=== PATIENT | female | born 1950 | race Caucasian/White ===

== ENCOUNTER 2020-07-27 07:26 | Outpatient (REF) | payer MEDICARE, SELFPAY ==
[2020-07-27 11:12] LABS: Alanine Aminotransferase 22 U/L (0-31); Albumin Level 4.4 g/dL (3.5-5.0); Alkaline Phosphatase 71 U/L (39-117); Anion Gap 12 (12-20); Aspartate Amino Transferase 22 U/L (5-31); Bilirubin Total 0.6 mg/dL (0.0-1.0); Blood Urea Nitrogen 19 mg/dL (9-16); Calcium 9.7 mg/dL (8.4-10.2); Carbon Dioxide 29 mmol/L (22-29); Chloride 107 mmol/L (96-108); Cholesterol 154 mg/dL; Estimated Glomerular Filt Rate > 60; Glucose Fasting 103 mg/dL (60-99); HDL Cholesterol 45 mg/dL; LDL Cholesterol Calculated 91 mg/dl; Potassium 4.7 mmol/L (3.3-5.1); Sodium 143 mmol/L (135-145); Total Protein 6.8 g/dL (6.5-8.0); Triglycerides 91 mg/dL
[2020-07-27 11:34] LABS: TSH reflex Free T4 1.07 uIU/mL (0.32-4.0)
== END 2020-07-27 07:27 | disposition home or self-care (01) ==
LOC: HO.WFDLDS 07:26
PROVIDERS: Visit Provider Family Medicine
DX: Z00.00 Encounter for general adult medical examination without abnormal findings (principal); Z13.220 Encounter for screening for lipoid disorders; Z13.29 Encounter for screening for other suspected endocrine disorder
CPT/HCPCS: 36415; 80053; 80061; 84443

== ENCOUNTER 2020-11-06 09:19 | Outpatient (REF) | payer MEDICARE, SELFPAY ==
[2020-11-06 11:38] LABS: MANUAL DIFF FLAG NO
[2020-11-06 11:49] LABS: Basophils Absolute Auto 0.1 X10*3/uL (0.0-0.2); Basophils Percent Auto 1.3 % (0-2); Eosinophils Absolute Auto 0.1 X10*3/uL (0.0-0.4); Eosinophils Percent Auto 2.5 % (0-4); Hematocrit 40.6 % (37-47); Hemoglobin 13.3 g/dl (12.0-16.0); Imm Gran Abs Auto 0.01 X10*3/uL (0.00-0.03); Imm Gran Pct Auto 0.2 % (0.0-0.4); Lymphocytes Absolute Auto 1.2 X10*3/uL (1.2-4.9); Lymphocytes Percent Auto 25.3 % (20-40); Mean Corpuscular HGB Conc 32.8 g/dl (31.0-35.0); Mean Corpuscular Hemoglobin 31.6 pg (27.0-33.0); Mean Corpuscular Volume 96.4 fL (80-98); Mean Platelet Volume 10.1 fL (9.4-12.3); Monocytes Absolute Auto 0.4 X10*3/uL (0.1-1.2); Monocytes Percent Auto 8.4 % (2-11); Neutrophils Percent Auto 62.3 % (45-73); Platelet Count 255 X10*3/uL (160-400); Red Blood Count 4.21 X10*6/uL (4.20-5.50); White Blood Count 4.8 X10*3/uL (4.8-10.8)
[2020-11-06 11:53] LABS: Estimated Average Glucose 117 mg/dL; Hemoglobin A1c % 5.7 %
[2020-11-06 12:28] LABS: Alanine Aminotransferase 27 U/L (0-31); Albumin Level 4.5 g/dL (3.5-5.0); Alkaline Phosphatase 63 U/L (39-117); Anion Gap 12 (12-20); Aspartate Amino Transferase 27 U/L (5-31); Bilirubin Total 0.7 mg/dL (0.0-1.0); Blood Urea Nitrogen 16 mg/dL (9-16); Calcium 9.7 mg/dL (8.4-10.2); Carbon Dioxide 28 mmol/L (22-29); Chloride 106 mmol/L (96-108); Estimated Glomerular Filt Rate > 60; Glucose Fasting 95 mg/dL (60-99); Potassium 4.6 mmol/L (3.3-5.1); Sodium 141 mmol/L (135-145); TSH reflex Free T4 0.97 uIU/mL (0.32-4.0); Total Protein 7.1 g/dL (6.5-8.0)
== END 2020-11-06 09:20 | disposition home or self-care (01) ==
LOC: HO.WFDLDS 09:19
PROVIDERS: Visit Provider Family Medicine
DX: Z00.00 Encounter for general adult medical examination without abnormal findings (principal); R73.01 Impaired fasting glucose
CPT/HCPCS: 36415; 80053; 83036; 84443; 85025

== ENCOUNTER 2020-12-04 14:52 | Outpatient (REF) | payer MEDICARE, SELFPAY ==
--- NOTE | ~2020-12-04 | MM_ITS ---
EXAMINATION: BONE DENSITOMETRY CLINICAL INDICATION: Encounter for screening for osteoporosis. COMPARISON: Baseline BD dated 10/30/2007. TECHNIQUE: Using a [employer] DXA System (software version: 13.1) manufactured by [employer], dual-energy x-ray absorptiometry was performed of the lumbar spine and left hip. The images are of good technical quality. Summary results are attached. FINDINGS: AP SPINE L2-L4 (excluding L1): The data of L1-L4 has been changed to exclude the L1 vertebral body, because degenerative changes at this level may cause overestimation of lumbar spine density. Current: BMD 0.926 g/cm2, Z-score -0.8, T-score -2.3, osteopenia, 7.5% decrease from baseline (<5% change is not significant). Baseline: BMD 1.001 g/cm2. LEFT FEMUR, NECK: Current: BMD 0.656 g/cm2, Z-score -1.2, T-score -2.7, osteoporosis. Baseline: BMD 0.650 g/cm2. LEFT FEMUR, TOTAL: Current: BMD 0.758 g/cm2, Z-score -0.7, T-score -2.0, osteopenia, 3.6% decrease from baseline (<5% change is not significant). Baseline: BMD 0.786 g/cm2. IDENTIFIED RISK FACTORS: Menopause, secondary osteoporosis. HISTORY OF FRACTURE: None listed. MEDICATIONS: Calcium supplements or multivitamin, vitamin D. MM/XR DEXA appendicular skeleton IMPRESSION: 1. DIAGNOSIS: Osteoporosis based on the lowest T-score value of -2.7 in the femoral neck applying World Health Organization criteria. 2. 10-YEAR FRACTURE RISK PREDICTION, FRAX: According to the guidelines, FRAX calculation should only be performed on patients in the osteopenia bone density category. Therefore, FRAX was not performed on this patient. 3. Treatment Recommendations: NOF guidelines recommend consideration for treatment in postmenopausal women and men age 50 and older presenting with the following: -A hip or vertebral (clinical or morphometric) fracture. -T-score less than or equal to -2.5 at the femoral neck or spine after appropriate evaluation to exclude secondary causes. -Low bone mass at the hip or spine and a 10-year fracture probability by FRAX of greater than or equal to 3% for hip fracture or greater than or equal to 20% for major osteoporotic fracture based on the [place] adapted WHO algorithm. 4. Other Recommendations: All treatment decisions require clinical judgment and consideration of individual patient factors, including patient preferences, comorbidities, previous drug use, risk factors not captured in the FRAX model (e.g. frailty, falls, vitamin D deficiency, increased bone turnover, interval significant decline in bone density) and possible under or overestimation of fracture risk by FRAX. Additional medical evaluation for secondary cause of low bone mineral density may be appropriate. FUTURE SCAN RECOMMENDATION: People with diagnosed cases of osteoporosis or at high risk for fracture should have regular bone mineral density tests. For patients eligible for Medicare, routine testing is allowed once every 2 years. The testing frequency can be increased to one year for patients who have rapidly progressing disease, those who are receiving or discontinuing medical therapy to restore bone mass, or have additional risk factors.
== END 2020-12-04 14:53 | disposition home or self-care (01) ==
LOC: HO.MAMMO 14:52
PROVIDERS: PCP Family Medicine; Visit Provider Family Medicine
DX: Z13.820 Encounter for screening for osteoporosis (principal); Z78.0 Asymptomatic menopausal state
CPT/HCPCS: 77081

== ENCOUNTER 2021-05-31 07:42 | Outpatient (REF) | payer MEDICARE, SELFPAY ==
[2021-05-31 11:25] LABS: MANUAL DIFF FLAG NO
[2021-05-31 11:51] LABS: Basophils Percent Auto 0.8 % (0-2); Eosinophils Absolute Auto 0.1 X10*3/uL (0.0-0.4); Eosinophils Percent Auto 2.9 % (0-4); Hematocrit 38.5 % (37.0-47.0); Hemoglobin 12.5 g/dl (12.0-16.0); Imm Gran Abs Auto 0.01 X10*3/uL (0.00-0.03); Imm Gran Pct Auto 0.2 % (0.0-0.4); Lymphocytes Absolute Auto 1.7 X10*3/uL (1.2-4.9); Lymphocytes Percent Auto 34.4 % (20-40); Mean Corpuscular HGB Conc 32.5 g/dl (31.0-35.0); Mean Corpuscular Hemoglobin 31.8 pg (27.0-33.0); Mean Platelet Volume 10.6 fL (9.4-12.3); Monocytes Absolute Auto 0.4 X10*3/uL (0.1-1.2); Monocytes Percent Auto 7.7 % (2-11); Neutrophils Absolute Auto 2.6 x10*3/uL (2.0-8.3); Platelet Count 225 X10*3/uL (160-400); Red Blood Count 3.93 X10*6/uL (4.20-5.50); White Blood Count 4.8 X10*3/uL (4.8-10.8)
[2021-05-31 12:19] LABS: Alanine Aminotransferase 19 U/L (0-31); Albumin Level 4.2 g/dL (3.5-5.0); Alkaline Phosphatase 59 U/L (39-117); Anion Gap 13 (12-20); Aspartate Amino Transferase 22 U/L (5-31); Bilirubin Total 0.5 mg/dL (0.0-1.0); Blood Urea Nitrogen 18 mg/dL (9-16); Calcium 9.4 mg/dL (8.4-10.2); Carbon Dioxide 27 mmol/L (22-29); Chloride 108 mmol/L (96-108); Cholesterol 159 mg/dL; Estimated Glomerular Filt Rate > 60; Glucose Fasting 90 mg/dL (60-99); HDL Cholesterol 44 mg/dL; LDL Cholesterol Calculated 97 mg/dl; Potassium 4.5 mmol/L (3.3-5.1); Sodium 143 mmol/L (135-145); Total Protein 6.8 g/dL (6.5-8.0); Triglycerides 92 mg/dL
[2021-05-31 12:25] LABS: TSH reflex Free T4 0.78 uIU/mL (0.32-4.0)
== END 2021-05-31 07:43 | disposition home or self-care (01) ==
LOC: HO.WFDLDS 07:42
PROVIDERS: Visit Provider Family Medicine
DX: Z00.00 Encounter for general adult medical examination without abnormal findings (principal)
CPT/HCPCS: 36415; 80053; 80061; 84443; 85025

== ENCOUNTER 2022-02-18 09:14 | Outpatient (REF) | payer MEDICARE, SELFPAY ==
[2022-02-18 14:32] LABS: Influenza A PCR NEGATIVE (Negative); Influenza B PCR NEGATIVE (Negative); Resp Syncy Virus RNA Qual PCR POSITIVE (Negative); SARS COV2 PCR INHOUSE NEGATIVE (Negative)
== END 2022-02-18 09:15 | disposition home or self-care (01) ==
LOC: HO.LAB 09:14
PROVIDERS: Visit Provider Family Medicine
DX: Z20.822 Contact with and (suspected) exposure to COVID-19 (principal); R09.89 Other specified symptoms and signs involving the circulatory and respiratory systems
CPT/HCPCS: 0241U

== ENCOUNTER 2022-08-30 07:30 | Outpatient (REF) | payer MEDICARE, SELFPAY ==
[2022-08-30 11:42] LABS: Estimated Average Glucose 114 mg/dL; Hemoglobin A1c % 5.6 %
[2022-08-30 11:51] LABS: Alanine Aminotransferase 22 U/L (0-31); Albumin Level 4.3 g/dL (3.5-5.0); Alkaline Phosphatase 43 U/L (39-117); Anion Gap 13 (12-20); Appearance Urine Clear; Aspartate Amino Transferase 25 U/L (5-31); Bilirubin Total 0.6 mg/dL (0.0-1.0); Blood Urea Nitrogen 25 mg/dL (9-16); Calcium 9.8 mg/dL (8.4-10.2); Carbon Dioxide 25 mmol/L (22-29); Chloride 108 mmol/L (96-108); Cholesterol 166 mg/dL; Color Urine Yellow; Estimated Glomerular Filt Rate > 60; Glucose Fasting 98 mg/dL (60-99); Glucose Urine UA Negative (Negative); HDL Cholesterol 47 mg/dL; LDL Cholesterol Calculated 101 mg/dl; Leukocyte Esterase Urine Trace (Negative); Nitrite Urine Negative (Negative); PH 5.5 (5.0-9.0); Potassium 4.8 mmol/L (3.3-5.1); Sodium 141 mmol/L (135-145); Specific Gravity - Urine 1.015 (1.005-1.025); Total Protein 6.8 g/dL (6.5-8.0); Triglycerides 91 mg/dL; UMIC TRIGGER UA YES; Urine Blood Negative (Negative); Urine Ketones Negative (Negative); Urine Protein Negative (Neg-Trace)
[2022-08-30 11:54] LABS: Bacteria Urine None Seen (None Seen); RBC Urine 0-2 /HPF (0-2); Squamous Epithelial Cell Urine 0-2 /HPF (0-2); WBC Urine 0-5 /HPF (0-5)
[2022-08-30 11:57] LABS: Vitamin D 25-OH Total 56.3 ng/mL (>30)
[2022-08-30 12:14] LABS: Creatinine Urine 95.96 mg/dL; Microalbum/Creatinine Ratio Ur 21.8 ug/mg cr
== END 2022-08-30 07:31 | disposition home or self-care (01) ==
LOC: HO.WFDLDS 07:30
PROVIDERS: Visit Provider Family Medicine
DX: Z00.00 Encounter for general adult medical examination without abnormal findings (principal); I10 Essential (primary) hypertension; E55.9 Vitamin D deficiency, unspecified; R73.01 Impaired fasting glucose
CPT/HCPCS: 36415; 80053; 80061; 81001; 82043; 82306; 83036; 84443

== ENCOUNTER 2022-12-15 14:42 | Outpatient (REF) | payer MEDICARE, SELFPAY | END 2022-12-15 14:43 | disposition home or self-care (01) | LOC: HO.MAMMO 14:42 | PROVIDERS: PCP Family Medicine; Visit Provider Family Medicine | DX: Z13.820 Encounter for screening for osteoporosis (principal); M81.0 Age-related osteoporosis without current pathological fracture; Z78.0 Asymptomatic menopausal state | CPT/HCPCS: 77080 ==

== ENCOUNTER 2023-05-10 11:36 | Outpatient (AMB) | payer MEDICARE, SELFPAY ==
--- NOTE | 2023-05-10 11:44 | A.OFFPC_ITS ---
Vital Signs 05/10/23 11:47 Height 5 ft 4 in Weight 159 lb 8 oz BMI 27.4 BP 110/64 Blood Pressure Location Lt brachial Position Sitting Pulse 87 Pulse Source Pulse Oximeter Pulse Oximetry (%) 93 Oxygen Delivery Method Room Air Intake Visit Reasons: f/u hypertension and chronic conditions Intake Note: Patient is here to follow up on HTN, Chronic Conditions. Mold Mover Required: No Wheel Polisher: Not Required per policy Accompanied by: Self / Same As Patient Allergies No Known Allergies Allergy (Verified 05/10/23 11:47) Tobacco use date assessed: 05/10/23 Fall risk assessment: No Falls in past year Last assessed Fall Risk: 05/10/23 Dental Screening Dental Screen Date: 05/10/23 Did you have a dental visit in the last 12 months?: Yes Did you have a dental problem in the last 6 months where you did not have access to dental care?: No Was dental information given to patient?: Patient has dentist HPI f/u hypertension and chronic conditions HPI Details 72 y/o female presents to f/u hypertensi on and chronic conditions. Also hx of pre-diabetes. A1c today 05/10/23 is Blood pressure today 110/64. Hx of osteoporosis. She has been taking calcium and vitamin D. 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 glasses) Questionnaire PHQ-9 Over the last 2 weeks, how often have you been bothered by any of the following problems? 1. Little interest or pleasure in doing things: not at all 2. Feeling down, depressed, or hopeless: not at all 3. Trouble falling or staying asleep, or sleeping too much: not at all 4. Feeling tired or having little energy: not at all 5. Poor appetite or overeating: not at all 6. Feeling bad about yourself - or that you are a failure or have let yourself or your family down: not at all 7. Trouble concentrating on things, such as reading the newspaper or watching television: not at all 8. Moving or speaking so slowly that other people could have noticed. Or the opposite - being so fidgety or restless that you have been moving around a lot more than usual: not at all 9. Thoughts that you would be better off or of hurting yourself in some way: not at all Total score: 0 Depression Screening Interpretation: Negative Depression Screening Done: Yes Source: Developed by Drs. Anuel Bejarano, Vicky Adame, Arturo Cleaning and colleagues, with an educational dylan from [employer]. Thrive Questionnaire Date Thrive assessed: 05/10/23 I am a: Patient Within the past 12 months, did the food you bought not last and you didn't have the money to get more?: Never true Within the past 12 months, did you worry whether your food would run out before you got money to buy more?: Never true Do you have trouble paying for medicines?: No Do you have trouble getting transportation to medical appointments?: No Do you have trouble paying your heating and electricity bill?: No Do you have trouble taking care of your child, family member or friend?: No Do you have trouble with day-to-day activities such as bathing, preparing meals, shopping, managing finances, etc.?: No Are you currently unemployed and looking for a job?: No Are you interested in more education?: No Currently or been in a relationship where the following occur: no concerns reported THRIVE Score: 0 AUDIT C Alcohol Use Questionnaire (AUDIT-C) 1. How often do you have a drink containing alcohol?: 2-4 times a month 2. How many drinks containing alcohol do you have on a typical day when you are drinking?: 1 or 2 Total Score: 2 PER-7 AMB Questionnaire PER-7 Date PER - 7 assessed: 05/10/23 Feeling nervous, anxious, or on edge: 0 = Not at all Not being able to stop or control worryin = Not at all Worrying too much about different things: 0 = Not at all Trouble relaxin = Not at all Being so restless that it is hard to sit still: 0 = Not at all Becoming easily annoyed or irritable: 0 = Not at all Feeling afraid as if something awful might happen: 0 = Not at all Total PER-7 score (0-4 normal; 5-9 mild; 10-14 moderate; 15-21 severe): 0 Source: Developed by Drs. Anuel Bejarano, Vicky Adame, Arturo Cleaning and colleagues, with an educational dylan from [employer]. Physical exam (Primary Care) Vital Signs: Last Vital Signs Pulse 87 05/10/23 11:47 BP 110/64 05/10/23 11:47 Pulse Ox 93 05/10/23 11:47 Oxygen Delivery Method Room Air 05/10/23 11:47 BMI result Body Mass Index 27.4 Tobacco/Smoking Status: Tobacco use Status Tobacco use date assessed 05/10/23 05/10/23 11:55 Patient Tobacco Use Status Never used Tobacco 05/10/23 11:46 e-Cigarette/Vaping Use Never Used 05/10/23 11:46 PHQ-9: PHQ-9 Score PHQ-9: Total score 0 05/10/23 11:46 Depression Screening Interpretation: Negative Thrive Assessment: Date of Thrive Assessment Date Thrive assessed 05/10/23 05/10/23 11:46 Currently or been in a relationship where the following occur: no concerns reported Results AMB Hemoglobin A1c AMB Hemoglobin A1c 6.5 % Last Edit by Yvonne Hayes CMA on 05/10/23 12:55 Assessment and Plan Assessment & Plan (1) Essential hypertension: Code(s): I10 - Essential (primary) hypertension Plan: Blood?pressure?shows?good?control.??Goal?is?less?than?140/90 Continue?current?medication (2) Osteoporosis: Code(s): M81.0 - Age-related osteoporosis without current pathological fracture Plan: Ongoing?osteoporosis?and?bone?density?worsened?since?2020 She?has?already?been?started?on?alendronate. Continue?alendronate?and?we?will?follow-up?again?in?3?year Encouraged?good?sources?of?calcium?and?ecfshrg-[id number]-abq?has?a?supplement, and?weight-bearing?exercise?which?she?will?start (3) Diabetes mellitus: Code(s): E11.9 - Type 2 diabetes mellitus without complications Plan: A1c?6.5?now?shows?early?diabetes. Start?metformin 250?mg?daily Work?on?diet?lower?in?sugars?and?starches Refer?to?nurse?navigator?for?diabetic?teaching She?will?contact?her?eye?doctor?regarding?a?diabetic?eye?exam?and?I?recommended? this?annually. Orders: Orders AMB Hemoglobin A1c Today Z13.9 - Encounter for screening, unspecified Referrals Nurse Navigator Referral E11.9 - Type 2 diabetes mellitus without complications Medications: New metformin 250 mg (1/2 x 500 mg) PO DAILY 15 tabs 4RF 30 days Coding Level of Care Code Tele Est Pt Level 4 (55409) Diagnoses Essential hypertension I10 Osteoporosis M81.0 Diabetes mellitus E11.9
[2023-05-10 11:47] VITALS: BP 110/64; PULSE 87; O2SAT 93; BMI 27.4
== END 2023-05-10 13:06 | disposition home or self-care (01) ==
PROVIDERS: PCP Family Medicine; Visit Provider Family Medicine
DX: I10 Essential (primary) hypertension (principal); M81.0 Age-related osteoporosis without current pathological fracture; E11.9 Type 2 diabetes mellitus without complications
CPT/HCPCS: 83036; 99214

== ENCOUNTER 2023-09-15 10:49 | Outpatient (AMB) | payer MEDICARE, SELFPAY ==
[2023-09-15 11:10] VITALS: BP 120/72; PULSE 78; O2SAT 98; BMI 26.8
--- NOTE | 2023-09-15 11:10 | A.OFFPC_ITS ---
Vital Signs 09/15/23 11:10 Height 5 ft 4 in Weight 156 lb 3 oz BMI 26.8 BP 120/72 Blood Pressure Location Lt brachial Position Sitting Pulse 78 Pulse Source Pulse Oximeter Pulse Oximetry (%) 98 Oxygen Delivery Method Room Air Intake Visit Reasons: f/u hypertension and chronic conditions Intake Note: Patient is here for follow up on hypertension and diabetes. Allergies No Known Allergies Allergy (Verified 09/15/23 11:12) Medication List - Last Reconciled 09/15/23 by Adrien Fernández MD alendronate 70 mg PO QWEEK 84 days Ca-D3-mag pz-hghz-yjh-asaf-bor 600 mg calcium- 20 mcg-50 mg (Calcium 600-D3 Plus (mag-zinc)) tabs PO chlordiazepoxide-clidinium 5-2.5 mg 1 cap PO BID lisinopril 10 mg PO DAILY 90 days mesalamine ER 1.5 grams PO DAILY metformin 250 mg (1/2 x 500 mg) PO DAILY 30 days multivitamin 1 tab PO DAILY omeprazole 20 mg PO DAILY simvastatin 20 mg PO BEDTIME 90 days Tobacco use date assessed: 09/15/23 Fall risk assessment: No Falls in past year Last assessed Fall Risk: 09/15/23 Dental Screening Dental Screen Date: 05/10/23 HPI f/u hypertension and chronic conditions HPI Details Patient?presents?to?follow- up?hypertension?and?new?diagnosis?of?diabetes. Blood?pressure?is?120/72?and?she?is?taking?lisinopril?without?problems Had?started?her?on?1/2?tab?metformin?and?referred?her?to?the?nurse?navigator?for ?diabetic?teaching A1c?decreased?from?6.5%?to?5.8%.??No?problems?with?metformin.??Wor prem?on?diabetic?diet?and?getting?more?exercise. 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 glasses) Questionnaire Thrive Questionnaire Date Thrive assessed: 05/10/23 PER-7 AMB Questionnaire PER-7 Date PER - 7 assessed: 05/10/23 Source: Developed by Drs. Anuel Bejarano, Vicky Adame, Arturo Cleaning and colleagues, with an educational dylan from [employer]. Review of Systems Const Denies chills, Denies fatigue, Denies fever(s), Denies headache(s) and Denies weakness ENT Denies dizziness and Denies headache(s) Card Denies chest pain, Denies lightheadedness, Denies dyspnea and Denies other (Palpitations) Resp Denies cough, Denies dyspnea, Denies wheezing and Denies other ( shortness of breath) Musc Denies numbness and Denies tingling Neuro Denies dizziness, Denies headache(s), Denies numbness, Denies tingling, Denies paresthesias and Denies weakness Psych Denies anxiety and Denies depression Endo Denies fatigue, Denies polydipsia and Denies polyuria Aller/Immun Denies wheezing Physical exam (Primary Care) Vital Signs: Last Vital Signs Pulse 78 09/15/23 11:10 BP 120/72 09/15/23 11:10 Pulse Ox 98 09/15/23 11:10 Oxygen Delivery Method Room Air 09/15/23 11:10 BMI result Body Mass Index 26.8 Tobacco/Smoking Status: Tobacco use Status Tobacco use date assessed 09/15/23 09/15/23 11:13 Patient Tobacco Use Status Never used Tobacco 09/15/23 11:11 e-Cigarette/Vaping Use Never Used 09/15/23 11:11 Thrive Assessment: Date of Thrive Assessment Date Thrive assessed 05/10/23 09/15/23 11:11 Const General: no acute distress and well developed Nutritional Appearance: well nourished Orientation/consciousness: patient oriented x3 [facility] Head: Yes normocephalic and Yes atraumatic Eyes General: appearance normal, both eyes and all related structures Pupils: Equal, round and reactive pupils present EOM: EOMs intact bilaterally Resp Effort & Inspection: normal respiratory effort Auscultation: clear to auscultation bilaterally Cardio Rate: regular rate Rhythm: regular rhythm Heart sounds: S1 normal heart sound present, S2 normal heart sound present, no gallops, no murmurs and no rubs Neuro General: patient oriented x3 and gait normal Cranial nerves: Yes Equal, round and reactive pupils present Psych Affect: normal affect Assessment and Plan Assessment & Plan (1) Essential hypertension: Code(s): I10 - Essential (primary) hypertension Plan: Blood?pressure?is?controlled.??Goal?is Less?than?140/90 Continue?current?medication (2) Diabetes: Code(s): E11.9 - Type 2 diabetes mellitus without complications Plan: New?diagnosis?of?early?diabetes?at?last?visit. Has?now?had?appointments?with?nurse?navigator?for?diabetic?teaching Tolerating?metformin?250?mg?daily A1c?improved?from?6.5%?to?5.8%?and?goal?is?less?than?7.0%?an d?ideally?less?than?6.5%. We?discussed?that?if?she?is?able?to?continue?bring?her?A1c?down?to?about?5.4%?we ?can?trial?off?of?metformin?and?consider?managing?as?diet-controlled?diabetes. She?will?continue?lifestyle?changes?and?for?now?she?will?continue?metformin. Orders: Orders AMB Hemoglobin A1c Today Z13.9 - Encounter for screening, unspecified Coding Level of Care Code Est Pt Level 3 (91236) Diagnoses Essential hypertension I10 Diabetes E11.9
== END 2023-09-15 11:38 | disposition home or self-care (01) ==
PROVIDERS: PCP Family Medicine; Visit Provider Family Medicine
DX: I10 Essential (primary) hypertension (principal); E11.9 Type 2 diabetes mellitus without complications
CPT/HCPCS: 99213

== ENCOUNTER 2023-10-27 06:14 | Day surgery (SDC) | payer MEDICARE, SELFPAY ==
[2023-10-25 13:43] VITALS: BMI 27.2
[2023-10-27 06:33] VITALS: BMI 26.2
[2023-10-27] MEDS: Lactated Ringers 1,000 ML 50 ML IVCONT (06:46)
[2023-10-27 06:57] VITALS: BP 118/67; PULSE 92; RESP 18; TEMP 36.7; O2SAT 96
[2023-10-27 06:59] LABS: Glucose, Whole Blood 92 mg/dL (60-115)
--- NOTE | 2023-10-27 07:36 | P.HPSUR_ITS ---
Pre-Procedural Eval Section A - 24 Hr Update-Section A only Date of Service: 10/27/23 Section B - Complete if H&P > 30 days Chief Complaint: Crohn's disease of both small and large intestine Details of Present Illness: see H&P no changes Relevant Family History (Specify if Yes): No Relevant Social History: None Present Medications: see Short Stay Collaborative assessment Medical History: No relevant PMH History of Previous Operations: No relevant previous surgery Allergies: Allergies Allergy/AdvReac Type Severity Reaction Status Date / Time No Known Allergies Allergy Verified 10/27/23 06:42 Review of Systems Sugical H&P ROS: Negative: Constitution, Cardiovascular, Respiratory, Neurological, Psychiatric, Hem-Onc, Allergic/Immunologic, Gastrointestinal, Genitourinary, Musculoskeletal, Integumentary, Endocrine and Eyes/Ears/No se/Throat Exam Surgical H&P Exam: Normal: HEENT, Normal: Heart, Normal: Lungs, Normal: Extremities, Normal: Abdomen, Normal: Skin and Normal: Neurological Plan Diagnosis/Plan: Unchanged I have reviewed the history and physical and performed a pertinent physical examination on my patient. No changes have occurred unless specified. Time Spent With Patient Time: Total time managing care of this patient today ____ minutes.
[2023-10-27 08:05] VITALS: BP 85/40; PULSE 98; RESP 16; TEMP 36.1; O2SAT 97
--- NOTE | 2023-10-27 08:10 | HO.ANESPROP2 ---
HPI - Anesthesia Eval Consult details Narrative: colon screen PMFSH Active Problems Active Problems: All Active Problems Diabetes (Acute) Essential hypertension (Acute) Crohn's disease (Acute) Osteoporosis (Acute) Adult general medical exam (Acute) Pre-diabetes (Acute) Screening for colon cancer (Acute) Breast cancer screening by mammogram (Acute) Elevated fasting blood sugar (Acute) Right shoulder pain (Acute) Laboratory examination ordered as part of a routine general medical examination (Acute) Sinus infection (Acute) Past Medical History Medical History IBS (irritable bowel syndrome) GERD (gastroesophageal reflux disease) Osteoporosis Crohn's disease Diabetes HTN (hypertension) History of appendicitis Family History Family History Family/Other Diabetes Family history of problems with anesthesia: No Surgical History Surgical History H/O colonoscopy History of intestinal surgery History of Problems with Anesthesia: No Social History Social History Household Members: Spouse Housing: House Alcohol intake: current Alcohol intake frequency: holidays/special occasions only Alcohol type: beer Patient Tobacco Use Status: Never used Tobacco e-Cigarette/Vaping Use: Never Used Second Hand Smoke Exposure: No Are you DNR?: No Advance Directives: No Advance Directives Information Provided: Yes Nutrition Risks: No Nutritional Risk service: No Current occupational status: employed 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 glasses) Meds Allergies Allergy/AdvReac Type Severity Reaction Status Date / Time No Known Allergies Allergy Verified 10/27/23 06:42 Active Medications: Current Medications Lactated Ringer's (Lr) 1,000 mls @ 50 mls/hr IVCONT .Q20H NAOMIE Last Admin: 10/27/23 06:46 Dose: 50 mls/hr Home Medications ?Medication ?Instructions ?Recorded ?Confirmed ?Last Taken ?Type Ca 600 mg-D3 20 mcg-mag oxide 50 1 tab PO DAILY 07/02/20 10/25/23 Unknown History mc-Hm-gjaiyh-manganese-boron tablet (Calcium 600-D3 Plus (mag-zinc)) chlordiazepoxide-clidinium 5 1 cap PO BID 07/02/20 10/25/23 Unknown History mg-2.5 mg capsule mesalamine 0.375 gram 1.5 g PO DAILY 07/02/20 10/25/23 Unknown History capsule,extended release 24 hr multivitamin 1 tab PO DAILY 07/02/20 10/25/23 Unknown History omeprazole 20 mg capsule,delayed 20 mg PO DAILY 08/27/20 10/25/23 Unknown History release Exam Height,Weight and Vital Signs: Height 5 ft 3.25 in Weight 67.585 kg Last Vital Signs Temp 97 F 10/27/23 08:05 Pulse 98 10/27/23 08:05 Resp 16 10/27/23 08:05 BP 85/40 L 10/27/23 08:05 Pulse Ox 97 10/27/23 08:05 O2 Del Method Room Air 10/27/23 08:05 Pertinent Lab Results Pertinent Lab Results: Laboratory Tests 10/27/23 06:54 POC Glucose 92 Airway Mallampati Class: II TM Dist: >3cm Neck ROM: Full Heart: rrr Lungs: cta Assessment and Plan Assessment Anesthesia Assessment: Anesthesia Plan Discussed Final Anesthetic Review Family History of Problems with Anesthesia: No History of Problems with Anesthesia: No NPO: Yes ASA Class: III Final Preanesthetic Review: No Changes in Pt Med Stat, Meds/Allgs Chart Reviewed, Consent Obtained/Reviewed and Anes Risks/Benef Reviewed Patient Risk: Intermediate Procedure Risk: Low Anesthetic Plan Anesthetic Plan: MAC: Disposition: Standard PACU
[2023-10-27 08:20] VITALS: BP 103/61; PULSE 101; RESP 20; TEMP 36.5; O2SAT 96
--- NOTE | 2023-10-27 08:39 | OP_ITS ---
DATE OF SERVICE: 10/27/2023 SURGEON: Terrence Morgan MD INDICATIONS: Crohn disease involving the small and large intestine. PREOPERATIVE DIAGNOSIS: POSTOPERATIVE DIAGNOSIS: PROCEDURE PERFORMED: Colonoscopy to the neoterminal ileum with biopsy. ESTIMATED BLOOD LOSS: COMPLICATIONS: ANESTHESIA: Monitored anesthesia care. ASSISTANTS: SPECIMENS: DESCRIPTION OF PROCEDURE: A history and physical were performed. The risks and benefits of the procedure were explained to the patient, and informed consent was obtained. The patient was placed in the left lateral decubitus position. A digital rectal exam was performed and was found to be normal. The Olympus pediatric video colonoscope was introduced into the rectum and advanced to the cecum. The cecum was identified by transillumination, palpation, and identification of ileocecal valve, examination was performed and the scope was removed. She tolerated the procedure well and was returned to recovery area in stable condition. FINDINGS: The neoterminal ileum was normal. There was an anastomosis, which was widely patent at about 60 cm. The colonic mucosa showed scarring consistent with her prior history of Crohn disease. There was no active Crohn disease identified. Biopsies were obtained from the neoterminal ileum and from the remaining colon throughout. Retroflexed examination was normal. No polyps were identified. There were a few diverticula seen. IMPRESSION: Crohn disease; small and large intestine. RECOMMENDATION: Follow up the biopsy results. MD AYAKA Voss/DANISH / [id number]
== END 2023-10-27 08:35 | disposition home or self-care (01) ==
PROVIDERS: PCP Family Medicine; Visit Provider Internal Medicine Gastroenterology
PROC: 0DJD8ZZ Inspection of Lower Intestinal Tract, Via Natural or Artificial Opening Endoscopic (ICD-10-PCS; CPT 45378; principal; 2023-10-27 07:30)
DX: K50.818 Crohn's disease of both small and large intestine with other complication (principal); K57.30 Diverticulosis of large intestine without perforation or abscess without bleeding; Z98.0 Intestinal bypass and anastomosis status; Z90.49 Acquired absence of other specified parts of digestive tract; K21.9 Gastro-esophageal reflux disease without esophagitis; I10 Essential (primary) hypertension; M81.0 Age-related osteoporosis without current pathological fracture; Z79.899 Other long term (current) drug therapy
CPT/HCPCS: 45380; 82947; 88305; J2704

== ENCOUNTER 2023-12-13 15:39 | Outpatient (REF) | payer MEDICARE, SELFPAY ==
--- NOTE | ~2023-12-13 | MM_ITS ---
EXAMINATION: MM SCREENING DIGITAL BREAST TOMOSYNTHESIS, BILATERAL CLINICAL INFORMATION: Screening. Asymptomatic. COMPARISON: Mammography: Comparison is made with available priors TECHNIQUE: Digital breast mammography with tomosynthesis is performed in both the craniocaudal and mediolateral oblique views along with computer-aided detection (CAD). FINDINGS: There are scattered areas of fibroglandular density (ACR BI-RADS breast composition Category b). There are no significant masses, abnormal calcifications, or other abnormalities. MM/MM tomosynthesis screening BI IMPRESSION: No mammographic evidence of malignancy. ASSESSMENT: BI-RADS BI-RADS 1 - Negative RECOMMENDATION: Routine annual mammography screening. 1 year F/U This examination should not preclude the clinical evaluation of a suspicious palpable abnormality. This patient's information was entered into a reminder system with a target due date for their next mammogram. Electronically signed by: Eugenie Isbell DO 12/25/2023 05:15 PM EDT
== END 2023-12-13 15:40 | disposition home or self-care (01) ==
LOC: HO.MAMMO 15:39
PROVIDERS: PCP Family Medicine; Visit Provider Family Medicine
DX: Z12.31 Encounter for screening mammogram for malignant neoplasm of breast (principal)
CPT/HCPCS: 77063; 77067

== ENCOUNTER → 2023-12-13 16:00 | Outpatient (BNV) | payer MEDICARE, SELFPAY | PROVIDERS: PCP Family Medicine; Visit Provider Internal Medicine | DX: Z12.31 Encounter for screening mammogram for malignant neoplasm of breast (principal) | CPT/HCPCS: 77063; 77067 ==

== ENCOUNTER 2024-03-22 15:42 | Outpatient (AMB) | payer MEDICARE, SELFPAY ==
--- NOTE | 2024-03-22 15:53 | MHC.PC.OV ---
Vital Signs 03/22/24 16:03 Height 5 ft 2.5 in Weight 162 lb 8 oz BMI 29.2 BP 120/70 Blood Pressure Location Lt brachial Position Sitting Respiration 14 Pulse 84 Pulse Source Pulse Oximeter Pulse Oximetry (%) 95 Oxygen Delivery Method Room Air Intake Visit Reasons: Annual PE - see comments Intake Note: annual PE Is last menstrual period known: No Post menopausal: Yes Patient : No Allergies No Known Allergies Allergy (Verified 03/22/24 15:54) Tobacco use date assessed: 03/22/24 Fall risk assessment: No Falls in past year Last assessed Fall Risk: 03/22/24 Dental Screening Dental Screen Date: 03/22/24 Did you have a dental visit in the last 12 months?: Yes Did you have a dental problem in the last 6 months where you did not have access to dental care?: No Was dental information given to patient?: Patient has dentist HPI Annual PE - see comments HPI Details 73 y/o female presents for a CPE with f/u labs and health maintenance. No recent labs to review. She notes she had a colonoscopy in October of last year. She states she has a colonoscopy every 3 years. She is on alendronate for osteoporosis. A1c today 03/22/24 is 5.8%. She is on metformin 250mg daily. Blood pressure today 120/70, 84p. She is on lisinopril 10mg daily. HPI Comments History of Present Illness Details Documentation assistance for Adrien Fernández MD, was provided by Kloe Sierra,? Siding Mechanic on 03/22/2024 at 4:09 PM EST. I, Dr. Fernández, have read, observed, and verified documentation. ?? PFSH Medical History IBS (irritable bowel syndrome) GERD (gastroesophageal reflux disease) Osteoporosis Crohn's disease Diabetes HTN (hypertension) History of appendicitis Surgical History H/O colonoscopy History of intestinal surgery Family History Family/Other Diabetes Social History Household Members: Spouse Housing: House Alcohol intake: current Alcohol intake frequency: holidays/special occasions only Alcohol type: beer Patient Tobacco Use Status: Never used Tobacco e-Cigarette/Vaping Use: Never Used Second Hand Smoke Exposure: No Patient : No service: No Current occupational status: employed 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 glasses) Questionnaire PHQ-9 Over the last 2 weeks, how often have you been bothered by any of the following problems? 1. Little interest or pleasure in doing things: not at all 2. Feeling down, depressed, or hopeless: not at all 3. Trouble falling or staying asleep, or sleeping too much: not at all 4. Feeling tired or having little energy: not at all 5. Poor appetite or overeating: not at all 6. Feeling bad about yourself - or that you are a failure or have let yourself or your family down: not at all 7. Trouble concentrating on things, such as reading the newspaper or watching television: not at all 8. Moving or speaking so slowly that other people could have noticed. Or the opposite - being so fidgety or restless that you have been moving around a lot more than usual: not at all 9. Thoughts that you would be better off or of hurting yourself in some way: not at all Total score: 0 Depression Screening Interpretation: Negative Depression Screening Done: Yes 97321 - PHQ-9 Billing: Yes Source: Developed by Drs. Anuel Bejarano, Vicky Adame, Arturo Cleaning and colleagues, with an educational dylan from [employer]. Thrive Questionnaire Date Thrive assessed: 03/22/24 I am a: Patient What is your living situation today?: I have a steady place to live Within the past 12 months, did the food you bought not last and you didn't have the money to get more?: Never true Within the past 12 months, did you worry whether your food would run out before you got money to buy more?: Never true Do you have trouble paying for medicines?: No Do you have trouble getting transportation to medical appointments?: No Do you have trouble paying your heating and electricity bill?: No Do you have trouble taking care of your child, family member or friend?: No Do you have trouble with day-to-day activities such as bathing, preparing meals, shopping, managing finances, etc.?: No Are you currently unemployed and looking for a job?: No Are you interested in more education?: No Please select the resources that you would like help with: None Currently or been in a relationship where the following occur: No concerns reported THRIVE Score: 0 AUDIT C Alcohol Use Questionnaire (AUDIT-C) 1. How often do you have a drink containing alcohol?: 2-4 times a month 2. How many drinks containing alcohol do you have on a typical day when you are drinking?: 1 or 2 3. How often do you have six or more drinks on one occasion?: Never Total Score: 2 PER-7 AMB Questionnaire PER-7 Date PER - 7 assessed: 03/22/24 Feeling nervous, anxious, or on edge: 0 = Not at all Not being able to stop or control worryin = Not at all Worrying too much about different things: 0 = Not at all Trouble relaxin = Not at all Being so restless that it is hard to sit still: 0 = Not at all Becoming easily annoyed or irritable: 0 = Not at all Feeling afraid as if something awful might happen: 0 = Not at all Total PER-7 score (0-4 normal; 5-9 mild; 10-14 moderate; 15-21 severe): 0 Source: Developed by Drs. Anuel Bejarano, Vicky Adame, Arturo Cleaning and colleagues, with an educational dylan from [employer]. Review of Systems Const Denies chills, Denies fatigue, Denies fever(s), Denies headache(s) and Denies weakness Eyes Denies change in vision ENT Denies dizziness, Denies headache(s), Denies hearing loss, Denies nasal congestion, Denies sinus pain, Denies sinus pressure and Denies sore throat Card Denies chest pain, Denies lightheadedness, Denies dyspnea and Denies other (palpitations) Resp Denies cough, Denies dyspnea and Denies wheezing GI Denies abdominal pain, Denies melena, Denies hematochezia, Denies change in bowel habits, Denies dyspepsia and Denies nausea Denies hematuria and Denies dysuria Musc Denies abnormal gait, Denies myalgias, Denies arthralgias, Denies numbness and Denies tingling Skin/Breast Denies rash, Denies unusual bruising and Denies wounds Neuro Denies abnormal gait, Denies dizziness, Denies headache(s), Denies memory loss, Denies numbness, Denies Sensory deficit (Neuro), Denies tingling and Denies weakness Psych Denies anxiety, Denies depression and Denies memory loss Endo Denies cold intolerance, Denies fatigue, Denies heat intolerance, Denies polydipsia and Denies polyuria Scott/Lymph Denies easy bleeding and Denies easy bruising Aller/Immun Denies wheezing Physical exam (Primary Care) Vital Signs: Last Vital Signs Pulse 84 03/22/24 16:03 Resp 14 03/22/24 16:03 BP 120/70 03/22/24 16:03 Pulse Ox 95 03/22/24 16:03 Oxygen Delivery Method Room Air 03/22/24 16:03 BMI result Body Mass Index 29.2 Tobacco/Smoking Status: Tobacco use Status Tobacco use date assessed 03/22/24 03/22/24 16:00 Patient Tobacco Use Status Never used Tobacco 03/22/24 16:00 e-Cigarette/Vaping Use Never Used 03/22/24 16:00 PHQ-9: PHQ-9 Score PHQ-9: Total score 0 03/22/24 16:06 Depression Screening Interpretation: Negative Thrive Assessment: Date of Thrive Assessment Date Thrive assessed 03/22/24 03/22/24 16:06 Currently or been in a relationship where the following occur: No concerns reported Const General: no acute distress, well developed, alert and awake Nutritional Appearance: well nourished Orientation/consciousness: patient oriented x3 HENMT Head: Yes normocephalic and Yes atraumatic Ears: hearing grossly normal bilaterally and TM's normal bilaterally General nose exam: Normal external nose present and Normal nares present Mouth: Normal oral and palatal mucosa present and moist mucous membranes Teeth and gingiva: dentition normal Throat: Yes posterior oropharynx normal Eyes General: appearance normal, both eyes and all related structures Pupils: Equal, round and reactive pupils present and Pupil accommodation reflex normal EOM: EOMs intact bilaterally Neck Neck: Yes normal visual inspection, Yes no lymphadenopathy and Yes trachea midline Thyroid: Thyroid normal Carotids: no bruits Lymphatic: no lymphadenopathy noted Chest Chest palpation & inspection: normal inspection of the chest Resp Effort & Inspection: normal respiratory effort Auscultation: clear to auscultation bilaterally Cardio Rate: regular rate Rhythm: regular rhythm Heart sounds: S1 normal heart sound present, S2 normal heart sound present, no gallops, no murmurs and no rubs Bruits: no abdominal aortic bruits and no carotid bruits GI Palpation (GI): No Abdominal aortic bruit present, Soft to palpation, nontender, No hepatosplenomegaly present and No Rebound tenderness present Auscultation: normal bowel sounds General: Yes no CVA tenderness Back/Spine/Pelvis Back: no CVA tenderness Cervical Spine: cervical ROM normal and No Cervical spine tenderness Thoracic/Lumbar Spine: thoraco-lumbar ROM normal, No pain with thoraco-lumbar ROM, No thoracic spinal tenderness and No lumbar spinal tenderness Skin Lesions: no lesions Rashes: no rashes Trauma: no lacerations or abrasions Wounds: no wounds Nails: normal Neuro General: patient oriented x3 Cranial nerves: Yes Equal, round and reactive pupils present Cognition (Neuro): normal cognition Gait exam (Neuro): Normal gait present Motor exam (neuro): 5/5 motor strength present throughout Sensory Exam: No Sensory deficit (Neuro) Deep tendon reflexes (DTR's): Right patellar reflex intensity grade: 2+ and Left patellar reflex intensity grade: 2+ Extrem General: Yes normal to inspection and No edema Psych Appearance: grossly normal Affect: normal affect Attitude: cooperative Thought process: Normal thought process present Coding Level of Care Code Est Pt Level 3 (35314) Est Pt Prev Care >65y(63959) Diagnoses Adult general medical exam Z00.00 Diabetes E11.9 Essential hypertension I10 Osteoporosis M81.0 Screening for colon cancer Z12.11 Breast cancer screening by mammogram Z12.31 Additional Codes PHQ-9 - 29771 - PHQ-9 Billing: Yes ([id number]) Assessment & Plan Assessment & Plan (1) Adult general medical exam: Code(s): Z00.00 - Encounter for general adult medical examination without abnormal findings Category: Medical Plan: 73-year-old?female?presents?for?complete?physical?exam Encouraged?healthy?diet?with?active?lifestyle?and?plenty?of?exercise (2) Diabetes: Code(s): E11.9 - Type 2 diabetes mellitus without complications Category: Medical Plan: A1c?5.8%?on?metformin.??Goal?is?less?than?7.0% Good?control Continue?current?medication We?discussed?that?if?she?is?able?to?bring?her?A1c?down?to?5.4%,?we?would?discuss?decreasing?or?stopping?medication?working?at?diet-controlled?diabetes. (3) Essential hypertension: Code(s): I10 - Essential (primary) hypertension Category: Medical Plan: Blood?pressure?is?controlled.??Goal?is?less?than? Continue?medication (4) Osteoporosis: Code(s): M81.0 - Age-related osteoporosis without current pathological fracture Category: Medical Plan: Bone?density?shows?osteoporosis?worsens?slightly?her?despite?alendronate She?has?an?upcoming?low?density?test?this?year?November If?he?continues?to?worsen?will?refer?to?Rheumatology For?now,?continue?alendronate,?continue?good?sources?of?calcium?and?vitamin-D?and?work?at?weight-bearing?exercise (5) Screening for colon cancer: Code(s): Z12.11 - Encounter for screening for malignant neoplasm of colon Category: Medical Plan: Patient?is?followed?by??Eddie?and?up-to-date With??Eddie?as?recommended (6) Breast cancer screening by mammogram: Code(s): Z12.31 - Encounter for screening mammogram for malignant neoplasm of breast Category: Medical Plan: Mammogram?last?year?was?negative?for?malignancy.??Continuing?annual?screening Mammogram?ordered?for?November Orders: Orders XR DEXA axial skeleton Today M81.0 - Age-related osteoporosis without current pathological fracture MM tomosynthesis screening BI Today Z12.31 - Encounter for screening mammogram for malignant neoplasm of breast Medications: Changed From Ca-D3-mag pc-mjfn-nnq-asaf-bor 600 mg calcium- 20 mcg-50 mg (Calcium 600-D3 Plus (mag-zinc)) 1 tab PO DAILY To Ca-D3-mag pz-zqhx-qhs-asaf-bor 600 mg calcium- 20 mcg-50 mg (Calcium 600-D3 Plus (mag-zinc)) 1 tab PO DAILY 90 days 90 tabs 3RF From multivitamin 1 tab PO DAILY To multivitamin 1 tab PO DAILY 90 days 90 tabs 3RF From omeprazole 20 mg PO DAILY To omeprazole 20 mg PO DAILY 30 days 30 caps 2RF Refilled lisinopril 10 mg PO DAILY 90 days 90 tabs 3RF alendronate 70 mg PO QWEEK 84 days 12 tabs 3RF simvastatin 20 mg PO BEDTIME 90 days 90 tabs 3RF
[2024-03-22 16:03] VITALS: BP 120/70; PULSE 84; RESP 14; O2SAT 95; BMI 29.2
== END 2024-03-22 16:36 | disposition home or self-care (01) ==
PROVIDERS: PCP Family Medicine; Visit Provider Family Medicine
DX: Z00.00 Encounter for general adult medical examination without abnormal findings (principal); E11.9 Type 2 diabetes mellitus without complications; I10 Essential (primary) hypertension; M81.0 Age-related osteoporosis without current pathological fracture; Z12.11 Encounter for screening for malignant neoplasm of colon; Z12.31 Encounter for screening mammogram for malignant neoplasm of breast

== ENCOUNTER → 2024-03-22 15:42 | Outpatient (BNVA) | payer MEDICARE, SELFPAY | PROVIDERS: PCP Family Medicine; Visit Provider Family Medicine | DX: Z00.00 Encounter for general adult medical examination without abnormal findings (principal); E11.9 Type 2 diabetes mellitus without complications; I10 Essential (primary) hypertension; M81.0 Age-related osteoporosis without current pathological fracture | CPT/HCPCS: 96127; 99212; 99397 ==

== ENCOUNTER 2024-04-27 08:01 | Outpatient (REF) | payer MEDICARE, SELFPAY ==
--- OUTSIDE RECORDS SUMMARY | 2024-04-27 08:03 | XMS_ITS | Patient Health Record ---
Author Organization [facility] Address [address] [place] [address] Care Team Providers Care Knitting Tester Name Role Phone Adrien Fernández Primary Care Provider UnavailTerrence Castellon Jr Unavailable ALLERGIES No Known Allergies RESULTS Component Value Reference Range Notes Glucose, Whole Blood Reviewed date:10/27/2023 03:27:04 PM Interpretation: Performing Lab:[facility], [address] [place] [phone] Notes/Report: Glucose, Whole Blood 92 60-115 mg/dL METER # : [id number] Pathology Reviewed date:11/16/2023 10:03:22 AM Interpretation: Performing Lab:[facility], [address] [place] [phone] Notes/Report: REASON FOR REFERRAL No Information MEDICATIONS Medication SIG (Take, Route, Frequency, Duration) Notes Start Date End Date Status Simvastatin 20 MG 1 tablet in the evening Orally Once a day Unknown Multi Vitamin/Minerals - as directed Orally once a day Unknown Calcium + D 500-1000-40 MG-UNT-MCG 1 tablet Orally once a day Unknown Alendronate Sodium 70 MG Oral for 84 Unknown Omeprazole 20 mg TAKE 1 CAPSULE NEEDED Active Apriso 0.375 GM 4 capsules in the morning Orally Once a day Unknown Lisinopril 10 MG 1 tablet Orally Once a day Unknown chlordiazePOXIDE-Cl idinium 5-2.5 mg TAKE 1 CAPSULE TWICE A DAY BEFORE MEALS for 90 days This is continuation of longstanding current medical therapy and is medically necessary for this patient. Active IMMUNIZATIONS Vaccine Route Administration Date Status Comme nts Influenza Unknown 12/27/2017 Administered Influenza Unknown 12/19/2019 Administered SOCIAL HISTORY Sex Assigned At : Social History Observation Description Sex Assigned At Unknown PROBLEMS Problem Type ICD Code Onset Dates Problem Status W/U Status Risk SNOMED Code Notes Problem Gastro-esophageal reflux disease without esophagitis (K21.9) Active confirmed 126151734 Problem Crohns disease of both small and large intestine with other complication (K50.818) Active confirmed 37529800 Problem Crohn''s disease of both small and large intestine without complication (K50.80) Active confirmed Crohn's disease of small AND large intestines (74090153) Encounters Encounter Location Date Provider Diagnosis [facility] [address] [place] [phone] 10/27/2023 Terrence Morgan Jr Crohn''s disease of both small and large intestine without complication K50.80 [facility] [address] [place] [phone] 01/25/2024 Terrence Morgan Jr [facility] [address] [place] [address] 07/28/2023 Terrence Morgan Jr [facility] [address] [place] [phone] 11/16/2023 Terrence Morgan Jr [facility] [address] [place] [address] 01/24/2024 Terrence Morgan Jr [facility] [address] [place] [phone] 04/12/2024 Terrence Morgan Jr ASSESSMENTS Encounter Date Diagnosis Assessment Notes Treatment Notes Treatment Clinical Notes 10/27/2023 Crohn''s disease of both small and large intestine without complication (ICD-10 - K50.80) PLAN OF TREATMENT Future Test Test Name Order Date Colonoscopy with balloon dilation 2011 COLONOSCOPY 02/25/2015 COLONOSCOPY 09/05/2018 Insurance Providers Payer Name Payer Address Payer Phone Subscriber Number Group Number Insured Name Patient Relationship to Insured Coverage Start Date Coverage End Date [facility] [address] [address] [place] [address] [id number] SHARON MILLS Self - patient is the insured Medicare of [place] [employer] [address] [place] [address] [id number] SHARON MILLS Self - patient is the insured MEDICAL (GENERAL) HISTORY Medical History History ICD Code Crohn's disease small large intestine. Diagnosed 1976, ileocolonic resection in 1996. Current therapy Apriso. Colonoscopy 11/08/19, and no evidence of active Crohn's disease. Colonic stricture IBS Gastroesophageal reflux disease Hypertension Osteoporosis Surgical History Surgery Date(Month/Year) Right hemicolectomy
--- OUTSIDE RECORDS SUMMARY | 2024-04-27 08:03 | XMS_ITS ---
Author Organization [facility] Address [address] [facility] [place] [phone] Care Team Providers Care Covering And Lining Supervisor Name Role Phone Adrien Fernández Primary Care Provider Unavailab Terrence Aguilar Jr REASON FOR VISIT Patient presents today for crohn's, gerd Encounters Encounter Location Date Provider Diagnosis [facility] [address] [facility] [address] [address] [place] [phone] 01/25/2024 Terrence Morgan Jr PLAN OF TREATMENT No Information
--- OUTSIDE RECORDS SUMMARY | 2024-04-27 08:03 | XMS_ITS ---
Author Organization [facility] Address [address] [facility] [address] [place] [address] Care Team Providers Care College Dean Name Role Phone Adrien Fernández Primary Care Provider Unavailab Terrence Aguilar Jr REASON FOR VISIT canceled jan 23 appt . doing well Encounters Encounter Location Date Provider Diagnosis [facility] [address] [facility] [address] [place] [phone] 01/24/2024 Terrence Morgan Jr PLAN OF TREATMENT No Information
--- OUTSIDE RECORDS SUMMARY | 2024-04-27 08:03 | XMS_ITS ---
Author Organization [facility] Address [address] [facility] [address] [place] [phone] Care Team Providers Care Precision Lens Grinder Apprentice Name Role Phone Adrien Fernández Primary Care Provider Unavailab Terrence Aguilar Jr Unavailable [phone] REASON FOR VISIT NEW PRESCRIPTION PLAN MEDICATIONS Medication SIG (Take, Route, Frequency, Duration) Notes Start Date End Date Status chlordiazePOXIDE-Cl idinium 5-2.5 mg TAKE 1 CAPSULE TWICE A DAY BEFORE MEALS for 90 days This is continuation of longstanding current medical therapy and is medically necessary for this patient. Active Encounters Encounter Location Date Provider [facility] [address] [address] 04/12/2024 Terrence Morgan Jr PLAN OF TREATMENT Medication Medication Name Sig Start Date Stop Date Notes chlordiazePOXIDE-Clidi nium 5-2.5 mg TAKE 1 CAPSULE TWICE A DAY BEFORE MEALS for 90 days This is continuation of longstanding current medical therapy and is medically necessary for this patient.
[2024-04-27 09:25] LABS: MANUAL DIFF FLAG NO
[2024-04-27 09:42] LABS: Basophils Absolute Auto 0.1 X10*3/uL (0.0-0.2); Basophils Percent Auto 1.5 % (0-2); Eosinophils Absolute Auto 0.1 X10*3/uL (0.0-0.4); Eosinophils Percent Auto 2.3 % (0-4); Hematocrit 39.1 % (37.0-47.0); Hemoglobin 12.9 g/dl (12.0-16.0); Imm Gran Abs Auto 0.01 X10*3/uL (0.00-0.03); Imm Gran Pct Auto 0.2 % (0.0-0.4); Lymphocytes Absolute Auto 1.4 X10*3/uL (1.2-4.9); Lymphocytes Percent Auto 28.3 % (20-40); Mean Corpuscular Hemoglobin 31.6 pg (27.0-33.0); Mean Corpuscular Volume 95.8 fL (80.0-98.0); Mean Platelet Volume 9.6 fL (9.4-12.3); Monocytes Absolute Auto 0.4 X10*3/uL (0.1-1.2); Monocytes Percent Auto 8.3 % (2-11); Neutrophils Absolute Auto 2.9 x10*3/uL (2.0-8.3); Neutrophils Percent Auto 59.4 % (45-73); Platelet Count 221 X10*3/uL (160-400); Red Blood Count 4.08 X10*6/uL (4.20-5.50); Red Cell Distribution Width 12.3 % (11.0-16.0); White Blood Count 4.8 X10*3/uL (4.8-10.8)
[2024-04-27 10:06] LABS: Appearance Urine Clear; Color Urine Yellow; Glucose Urine UA Negative (Negative); Leukocyte Esterase Urine Trace (Negative); Nitrite Urine Negative (Negative); PH 6.5 (5.0-9.0); Specific Gravity - Urine <= 1.005 (1.005-1.025); UMIC TRIGGER UA YES; Urine Blood Negative (Negative); Urine Ketones Negative (Negative); Urine Protein Negative (Neg-Trace)
[2024-04-27 10:26] LABS: Alanine Aminotransferase 27 U/L (0-31); Albumin Level 4.4 g/dL (3.5-5.0); Alkaline Phosphatase 43 U/L (39-117); Anion Gap 10 (12-20); Aspartate Amino Transferase 32 U/L (5-31); Bilirubin Total 0.6 mg/dL (0.0-1.0); Blood Urea Nitrogen 16 mg/dL (9-16); Calcium 9.8 mg/dL (8.4-10.2); Carbon Dioxide 29 mmol/L (22-29); Chloride 108 mmol/L (96-108); Cholesterol 153 mg/dL (<200); Estimated Glomerular Filt Rate > 60; Glucose Fasting 95 mg/dL (60-99); HDL Cholesterol 44 mg/dL (>40); LDL Cholesterol Calculated 89 mg/dL (<100); Potassium 4.9 mmol/L (3.3-5.1); Sodium 142 mmol/L (135-145); Total Protein 7.4 g/dL (6.5-8.0); Triglycerides 100 mg/dL (<150)
[2024-04-27 10:40] LABS: TSH reflex Free T4 0.75 uIU/mL (0.32-4.0)
[2024-04-27 11:05] LABS: Creatinine Urine 39.02 mg/dL; Microalbum/Creatinine Ratio Ur 12.8 ug/mg cr (<30)
[2024-04-27 11:30] LABS: Bacteria Urine None Seen (None Seen); Hyaline Casts Urine 0-2 /LPF (0-2); RBC Urine 0-2 /HPF (0-2); Squamous Epithelial Cell Urine 0-2 /HPF (0-2); WBC Urine 0-5 /HPF (0-5)
== END 2024-04-27 08:02 | disposition home or self-care (01) ==
LOC: HO.LAB 08:01
PROVIDERS: PCP Family Medicine; Visit Provider Family Medicine
DX: Z00.00 Encounter for general adult medical examination without abnormal findings (principal); I10 Essential (primary) hypertension
CPT/HCPCS: 36415; 80053; 80061; 81001; 81003; 82043; 82570; 84443; 85025

== ENCOUNTER → 2024-05-01 16:30 | Outpatient (AMB) | payer MEDICARE, SELFPAY ==
--- NOTE | 2024-05-01 16:26 | MHC.PC.OV ---
Intake Visit Reasons: f/u CPE-labs via telemedicine Allergies No Known Allergies Allergy (Verified 03/22/24 15:54) Medication List - Last Reconciled 05/01/24 by Adrien Fernández MD alendronate 70 mg PO QWEEK 84 days Ca-D3-mag hm-jqxo-wdv-asaf-bor 600 mg calcium- 20 mcg-50 mg (Calcium 600-D3 Plus (mag-zinc)) 1 tab PO DAILY 90 days lisinopril 10 mg PO DAILY 90 days metformin 250 mg (1/2 x 500 mg) PO DAILY 90 days multivitamin 1 tab PO DAILY 90 days omeprazole 20 mg PO DAILY 30 days simvastatin 20 mg PO BEDTIME 90 days Tobacco use date assessed: 03/22/24 Dental Screening Dental Screen Date: 03/22/24 HPI f/u CPE-labs via telemedicine HPI Details Labs drawn 04/27/24. Reviewed labs with pt. RBC mildly low at 4.08. Elevated AST of 32. Triglycerides 100. TC 153. LDL 89. HDL 44. She is on simvastatin 20mg. TSH 0.75. HPI Comments History of Present Illness Details Documentation assistance for Adrien Fernández MD, was provided by Kole Sierra, Splitting Machine Tender on 05/01/2024 at 5:19 PM EST. I, Dr. Fernández, have read, observed, and verified documentation. [facility] Medical History IBS (irritable bowel syndrome) GERD (gastroesophageal reflux disease) Osteoporosis Crohn's disease Diabetes HTN (hypertension) History of appendicitis Surgical History H/O colonoscopy History of intestinal surgery Family History Family/Other Diabetes Social History Household Members: Spouse Housing: House Alcohol intake: current Alcohol intake frequency: holidays/special occasions only Alcohol type: beer Patient Tobacco Use Status: Never used Tobacco e-Cigarette/Vaping Use: Never Used Second Hand Smoke Exposure: No service: No Current occupational status: employed 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 glasses) Questionnaire Thrive Questionnaire Date Thrive assessed: 03/22/24 EPR-7 AMB Questionnaire PER-7 Date PER - 7 assessed: 03/22/24 Source: Developed by Drs. Anuel Bejarano, Vicky Adame, Arturo Cleaning and colleagues, with an educational dylan from [employer]. Review of Systems Const Denies chills, Denies fatigue, Denies fever(s), Denies headache(s) and Denies weakness ENT Denies dizziness and Denies headache(s) Card Denies dyspnea Resp Denies cough, Denies dyspnea, Denies wheezing and Denies other (shortness of breath) Musc Denies numbness and Denies tingling Neuro Denies dizziness, Denies headache(s), Denies numbness, Denies tingling and Denies weakness Psych Denies anxiety and Denies depression Endo Denies fatigue Aller/Immun Denies wheezing Physical exam (Primary Care) Tobacco/Smoking Status: Tobacco use Status Tobacco use date assessed 03/22/24 05/01/24 16:28 Patient Tobacco Use Status Never used Tobacco 05/01/24 16:28 e-Cigarette/Vaping Use Never Used 05/01/24 16:28 Thrive Assessment: Date of Thrive Assessment Date Thrive assessed 03/22/24 05/01/24 16:28 Telehealth Telehealth Telehealth Platform: Telephone Location of provider rendering services: practice address Location of patient: address on file Patient Identification confirmed using: Name, : Yes Telehealth method: voice only Patient verbally consented to treatment: Yes Patient verbally consented to billing insurance company: Yes Patient informed of any privacy concerns related to visit: Yes Minutes spent on Phone/Video with Pt.: 7 Coding Level of Care Code Tele Est Pt Level 2 (64502) Diagnoses Elevated AST (SGOT) R74.01 Hyperlipidemia E78.5 Assessment & Plan Assessment & Plan (1) Elevated AST (SGOT): Code(s): R74.01 - Elevation of levels of liver transaminase levels Category: Medical Plan: Mildly?elevated?AST Hydrate?well Will?repeat?liver?enzymes?prior?to?next?visit?and?review (2) Hyperlipidemia: Code(s): E78.5 - Hyperlipidemia, unspecified Category: Medical Plan: Lipids?appear?well?controlled?on?simvastatin Continue?current?medication Orders: Orders Comprehensive Met. Panel Today R74.01 - Elevation of levels of liver transaminase levels Microalbumin, Random (w Creat) Today E11.9 - Type 2 diabetes mellitus without complications, I10 - Essential (primary) hypertension
== END ==
LOC: HO.HMCFM 16:30
PROVIDERS: PCP Family Medicine; Visit Provider Family Medicine
DX: R74.01 Elevation of levels of liver transaminase levels (principal); E78.5 Hyperlipidemia, unspecified

== ENCOUNTER 2024-07-12 09:38 | Outpatient (REF) | payer MEDICARE, SELFPAY ==
[2024-07-12 10:50] LABS: Creatinine Urine 100.28 mg/dL; Microalbum/Creatinine Ratio Ur 10.9 ug/mg cr (<30)
[2024-07-12 10:53] LABS: Appearance Urine Clear; Color Urine Yellow; Glucose Urine UA Negative (Negative); Leukocyte Esterase Urine Small (1+) (Negative); Nitrite Urine Negative (Negative); Specific Gravity - Urine 1.015 (1.005-1.025); UMIC TRIGGER UA YES; Urine Blood Negative (Negative); Urine Ketones Negative (Negative); Urine Protein Negative (Neg-Trace)
[2024-07-12 11:15] LABS: Bacteria Urine None Seen (None Seen); Hyaline Casts Urine 0-2 /LPF (0-2); RBC Urine 0-2 /HPF (0-2); Squamous Epithelial Cell Urine 0-2 /HPF (0-2); WBC Urine 0-5 /HPF (0-5)
[2024-07-12 12:08] LABS: Alanine Aminotransferase 26 U/L (0-31); Albumin Level 4.3 g/dL (3.5-5.0); Alkaline Phosphatase 44 U/L (39-117); Anion Gap 9 (12-20); Aspartate Amino Transferase 28 U/L (5-31); Bilirubin Total 0.5 mg/dL (0.0-1.0); Blood Urea Nitrogen 21 mg/dL (9-16); Calcium 9.7 mg/dL (8.4-10.2); Carbon Dioxide 31 mmol/L (22-29); Chloride 106 mmol/L (96-108); Estimated Glomerular Filt Rate > 60; Glucose Random 93 mg/dL (60-115); Potassium 4.9 mmol/L (3.3-5.1); Sodium 141 mmol/L (135-145)
== END 2024-07-12 09:39 | disposition home or self-care (01) ==
LOC: HO.WFDLDS 09:38
PROVIDERS: Visit Provider Family Medicine
DX: R74.01 Elevation of levels of liver transaminase levels (principal); I10 Essential (primary) hypertension; E11.9 Type 2 diabetes mellitus without complications
CPT/HCPCS: 36415; 80053; 81001; 82043; 82570

== ENCOUNTER 2024-09-26 11:40 | Outpatient (AMB) | payer MEDICARE, SELFPAY ==
--- OUTSIDE RECORDS SUMMARY | 2024-01-25 11:55 | XMS_ITS ---
Author Organization [facility] Address [address] [facility] [address] [place] [phone] Care Team Providers Care Chief Petroleum Engineer Name Role Phone Adrien Fernández Primary Care Provider UnavailTerrence Castellon Jr REASON FOR VISIT Patient presents today for crohn's, gerd Encounters Encounter Location Date Provider Diagnosis [facility] [address] [facility] [address] [place] [phone] 01/25/2024 Terrence Morgan Jr Plan Of Treatment No Information Progress Notes * SHARON ANGLIN ADOB: [birth year] (73 yo F)Acc No.[id number]:01/25/2024 Progress Notes Patient: Alba TORRES SHARON Francisca Provider: Sadie Morgan MD :1950 A ge:73 Y S ex:Female Date:01/25/2024 Address:[address] [place], [place] [id number] Pcp:Adrien Fernández Subjective: * Chief Complaints: * [...] Sadie Morgan MD Date: 03/26/2023 Generated for Printi carolyn/Jonathon/eTransmitting on: 0 09/26/2024 12:16 PM EDT
--- NOTE | 2024-09-26 11:59 | MHC.PC.OV ---
Vital Signs 09/26/24 12:01 Height 5 ft 2.5 in Weight 155 lb 6 oz BMI 28.0 BP 130/74 Blood Pressure Location Lt brachial Position Sitting Respiration 12 Pulse 71 Pulse Source Pulse Oximeter Temp 97.3 F Temp Source Oral Pulse Oximetry (%) 98 Oxygen Delivery Method Room Air Intake Visit Reasons: f/u DM, chronic conditions Intake Note: patient is scheduled to follow up on dm Front End Assistant Required: No Allergies No Known Allergies Allergy (Verified 09/26/24 11:59) Tobacco use date assessed: 03/22/24 Dental Screening Dental Screen Date: 03/22/24 HPI f/u DM, chronic conditions HPI Details 73 y/o female presents to f/u diabetes, liver enzymes. A1c today 09/26/24 6.1%. She is on metformin 250mg daily. Blood pressure today 130/74, 71p. She is on lisinopril 10mg daily. Most recent labs drawn 07/12/24. Reviewed labs with pt. Liver enzymes improved. AST 28. ALT 26. Mammogram and bone density scheduled in November. She is taking and tolerating alendronate. HPI Comments History of Present Illness Details Documentation assistance for Adrien Fernández MD, was provided by Kole Sierra, Stage Driver on 09/26/2024 at 12:15 PM EST. I, Dr. Fernández, have read, observed, and verified documentation. [facility] Medical History IBS (irritable bowel syndrome) GERD (gastroesophageal reflux disease) Osteoporosis Crohn's disease Diabetes HTN (hypertension) History of appendicitis Surgical History H/O colonoscopy History of intestinal surgery Family History Family/Other Diabetes Social History Household Members: Spouse Housing: House Alcohol intake: current Alcohol intake frequency: holidays/special occasions only Alcohol type: beer Patient Tobacco Use Status: Never used Tobacco e-Cigarette/Vaping Use: Never Used Second Hand Smoke Exposure: No service: No Current occupational status: employed 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 glasses) Questionnaire Thrive Questionnaire Date Thrive assessed: 03/22/24 I am a: Patient What is your living situation today?: I have a steady place to live Within the past 12 months, did the food you bought not last and you didn't have the money to get more?: Never true Within the past 12 months, did you worry whether your food would run out before you got money to buy more?: Never true Do you have trouble paying for medicines?: No Do you have trouble getting transportation to medical appointments?: No Do you have trouble paying your heating and electricity bill?: No Do you have trouble taking care of your child, family member or friend?: No Do you have trouble with day-to-day activities such as bathing, preparing meals, shopping, managing finances, etc.?: No Are you currently unemployed and looking for a job?: No Are you interested in more education?: No Please select the resources that you would like help with: None Currently or been in a relationship where the following occur: No concerns reported THRIVE Score: 0 PER-7 AMB Questionnaire PER-7 Date PER - 7 assessed: 03/22/24 Source: Developed by Drs. Anuel Bejarano, Vicky Adame, Arturo Cleaning and colleagues, with an educational dylan from [employer]. Review of Systems Const Denies chills, Denies fatigue, Denies fever(s), Denies headache(s) and Denies weakness ENT Denies dizziness and Denies headache(s) Card Denies dyspnea Resp Denies cough, Denies dyspnea, Denies wheezing and Denies other (shortness of breath) Musc Denies numbness and Denies tingling Neuro Denies dizziness, Denies headache(s), Denies numbness, Denies tingling and Denies weakness Psych Denies anxiety and Denies depression Endo Denies fatigue Aller/Immun Denies wheezing Physical exam (Primary Care) Vital Signs: Last Vital Signs Temp 97.3 F 09/26/24 12:01 Pulse 71 09/26/24 12:01 Resp 12 09/26/24 12:01 BP 130/74 09/26/24 12:01 Pulse Ox 98 09/26/24 12:01 Oxygen Delivery Method Room Air 09/26/24 12:01 BMI result Body Mass Index 28.0 Tobacco/Smoking Status: Tobacco use Status Tobacco use date assessed 03/22/24 09/26/24 12:05 Patient Tobacco Use Status Never used Tobacco 09/26/24 12:05 e-Cigarette/Vaping Use Never Used 09/26/24 12:05 Thrive Assessment: Date of Thrive Assessment Date Thrive assessed 03/22/24 09/26/24 12:05 Currently or been in a relationship where the following occur: No concerns reported Const General: well developed; No acute distress Nutritional Appearance: well nourished Orientation/consciousness: patient oriented x3 HENMT Head: Yes normocephalic and Yes atraumatic Eyes General: appearance normal, both eyes and all related structures Pupils: Equal, round and reactive pupils present EOM: EOMs intact bilaterally Resp Effort & Inspection: normal respiratory effort Auscultation: clear to auscultation bilaterally Cardio Rate: regular rate Rhythm: regular rhythm Heart sounds: S1 normal heart sound present, S2 normal heart sound present, no gallops, no murmurs and no rubs Neuro General: patient oriented x3 and gait normal Cranial nerves: Yes Equal, round and reactive pupils present Psych Affect: normal affect Results AMB Hemoglobin A1c AMB Hemoglobin A1c 6.1 % Last Edit by LEEANN Ge on 09/26/24 12:11 Results Reviewed Results Reviewed: Laboratory Last Values Hgb A1c (Clinic) 6.1 % (4.0-6.0) H 09/26/24 12:07 Coding Level of Care Code Est Pt Level 4 (85666) Diagnoses Diabetes E11.9 Essential hypertension I10 Elevated AST (SGOT) R74.01 Osteoporosis M81.0 Immunization counseling Z71.85 Assessment & Plan Assessment & Plan (1) Diabetes: Code(s): E11.9 - Type 2 diabetes mellitus without complications Category: Medical Plan: A1c climbed from 5.8% to 6.1%. Still well controlled. Goal is less than 7.0%. Encouraged improved diabetic diet No change to her medication regimen. Continue metformin as prescribed. (2) Essential hypertension: Code(s): I10 - Essential (primary) hypertension Category: Medical Plan: Blood pressure is controlled. Goal is less than 140/90 Continue current medication regimen Watch salt and sodium in diet (3) Elevated AST (SGOT): Code(s): R74.01 - Elevation of levels of liver transaminase levels Category: Medical Plan: AST had been mildly elevated at prior measurement. Most recent lab work shows liver enzymes within normal limits. (4) Osteoporosis: Code(s): M81.0 - Age-related osteoporosis without current pathological fracture Category: Medical Plan: Patient is taking alendronate, calcium and vitamin-D She is walking frequently Encouraged weight-bearing exercises Her bone density test is scheduled for December 17 (5) Immunization counseling: Code(s): Z71.85 - Encounter for immunization safety counseling Category: Medical Plan: We discussed COVID, flu, RSV, pneumonia, shingles and Tdap. Up to date with Tdap. She will schedule the others with her pharmacy. Orders: Orders AMB Hemoglobin A1c Today E11.9 - Type 2 diabetes mellitus without complications
[2024-09-26 12:01] VITALS: BP 130/74; PULSE 71; RESP 12; TEMP 36.3; O2SAT 98; BMI 28.0
== END 2024-09-26 12:44 | disposition home or self-care (01) ==
LOC: HO.HMCFM 11:41
PROVIDERS: PCP Family Medicine; Visit Provider Family Medicine
DX: E11.9 Type 2 diabetes mellitus without complications (principal); I10 Essential (primary) hypertension; R74.01 Elevation of levels of liver transaminase levels; M81.0 Age-related osteoporosis without current pathological fracture; Z71.85 Encounter for immunization safety counseling

== ENCOUNTER → 2024-09-26 11:40 | Outpatient (BNVA) | payer MEDICARE, SELFPAY | PROVIDERS: PCP Family Medicine; Visit Provider Family Medicine | DX: E11.9 Type 2 diabetes mellitus without complications (principal); I10 Essential (primary) hypertension; R74.01 Elevation of levels of liver transaminase levels; M81.0 Age-related osteoporosis without current pathological fracture; Z71.85 Encounter for immunization safety counseling | CPT/HCPCS: 83036; 99212 ==

== ENCOUNTER 2024-12-17 14:23 | Outpatient (REF) | payer MEDICARE, SELFPAY ==
--- OUTSIDE RECORDS SUMMARY | 2023-10-27 03:30 | XMS_ITS ---
Author Organization [facility] Address [address] [address] Care Team Providers Care Cadd Operator Name Role Phone Pradeep Adrien Primary Care Provider Unavailab Terrence Aguilar Jr Unavailable [phone] REASON FOR VISIT crohn's Problems Problem Type SNOMED Code ICD Code Onset Dates Problem Status W/U Status Risk Notes Problem Crohn's disease of small AND large intestines (42766698) Crohn''s disease of both small and large intestine without complication (K50.80) Active confirmed Encounters Encounter Location Date Provider Diagnosis [facility] Outpatient [address] [place] [id number] 10/27/2023 Terrence Morgan Jr Crohn''s disease of both small and large intestine without complication K50.80 Assessments Encounter Date Diagnosis (ICD Code) Assessment Notes Treatment Notes Treatment Clinical Notes Section Notes 10/27/2023 Crohn''s disease of both small and large intestine without complication (ICD-10 - K50.80) Plan Of Treatment Next Appt Details Provider Name:Terrence garcia Jr, 02/03/2025 01:35:00 PM, 10 [facility], [address], [place], [address], Progress Notes * SHARON ANGLIN ADOB: [birth year] (74 yo F)Acc No.[id number]:10/27/2023 COLON WITH MAC Patient: SHARON MAGANA Provider: Sadie Morgan MD :1950 A ge:72 Y S ex:Female Date:10/27/2023 Address:[address] [place] [address] [id number] Pcp:Adrien Fernández Subjective: * Chief Complaints: * [...] Pending * Provider: Sadie Morgan MD Date: 10/27/2023 Generated for Tello leon/Jonathon/Gilsonitting on: 0 12/17/2024 03:45 PM EDT
--- OUTSIDE RECORDS SUMMARY | 2024-01-25 11:55 | XMS_ITS ---
Author Organization [facility] Address [address] [facility] [address] [place] [phone] Care Team Providers Care Administrative Assistant Office Manager Name Role Phone Adrien Fernández Primary Care Provider Unavailab Terrence Aguilar Jr [phone] REASON FOR VISIT Patient presents today for crohn's, gerd Encounters Encounter Location Date Provider Diagnosis [facility] [address] [place] [phone] 01/25/2024 Terrence Moragn Jr Plan Of Treatment Next Appt Details Provider Name:Terrence garcia Jr, 02/03/2025 01:35:00 PM, [address] [place] [address], [address], [place], [address], Progress Notes * SHARON ANGLIN ADOB: [birth year] (74 yo F)Acc No.[id number]:01/25/2024 Progress Notes Patient: Alba BRIAN SHARON Espinosa Provider: Sadie Morgan MD :1950 A ge:73 Y S ex:Female Date:01/25/2024 Address:[address] [place] [address] [id number] Pcp:Adrien Fernández Subjective: * Chief Complaints: * [...] Pending * Provider: Sadie Morgan MD Date: 1 03/26/2023 Generated for Tello leon/Jonathon/Herminia on: 0 12/17/2024 03:45 PM EDT
--- NOTE | ~2024-12-17 | MM_ITS ---
EXAMINATION: DXA BONE DENSITY AXIAL HISTORY: M81.0 - Age-related osteoporosis without current pathological fracture TECHNIQUE: Bolster Dual energy absorptiometry (DEXA) of the lumbar spine, total left hip, and femoral neck was performed. COMPARISON: Comparison is made with the prior examination dated 12/15/2022. FINDINGS: The bone mineral density of the lumbar spine is 0.989 g/cm2, corresponding to a T-score of -1.6, and a Z-score of 0.1. This is indicative of osteopenia. This represents a BMD change of 6.8% compared to the prior exam. This is statistically significant. The bone mineral density of the left total hip is 0.783 g/cm2, corresponding to a T-score of -1.8, and a Z-score of -0.2. This is indicative of osteopenia. This represents a BMD change of 4.3% compared to the prior exam. This is not statistically significant. The bone mineral density of the left femoral neck is 0.658 g/cm2, corresponding to a T-score of -2.7, and a Z-score of -0.9. This is indicative of osteoporosis. This represents a BMD change of 3.8% compared to the prior exam. FRACTURE RISK: The FRAX index suggests a ten year probability of major osteoporotic fracture of 18.3%, and of hip fracture 6.0%. MM/XR DEXA axial skeleton IMPRESSION: Based on bone mineral density, and according to World Health Organization (WHO) criteria, the diagnosis is consistent with osteoporosis. Statistically, 68% of repeat scans fall within 1 SD (+/- 0.010 g/cm2 for AP spine L1-L4) and 1 SD (+/- 0.012 g/cm2 for femur total) FRAX is a trademark of the [employer]'s [facility] for Metabolic Bone Disease, a World Health Organization (WHO) Collaborating Center. Electronically signed by: Anuel Caldera MD 12/17/2024 03:01 PM EDT
--- OUTSIDE RECORDS SUMMARY | 2024-12-17 15:45 | XMS_ITS | Patient Health Record ---
Author Organization [facility] Address [address] [place] [phone] Care Team Providers Care Medical Translator Name Role Phone Adrien Fernández Primary Care Provider Unavailab Terrence Aguilar Jr Unavailable Allergies No Known Allergies Reason For Referral No Information Medications Medication SIG (Take, Route, Frequency, Duration) Notes Start Date End Date Status Simvastatin 20 MG 1 tablet in the even ing Orally Once a day Unknown Multi Vitamin/Minerals - as directed Ora lly once a day Unknown Calcium + D 500-1000-40 MG-UNT-MCG 1 tablet Orally once a day Unknown Alendronate Sodium 70 MG Oral for 84 Unknown Omeprazole 20 mg TAKE 1 CAPSULE NEEDED Active Apriso 0.375 GM 4 capsules in the mo rning Orally Once a day for 90 days Active chlordiazePOXIDE-Clidinium 5-2.5 mg TAKE 1 CAPSULE TWICE A DAY BEFORE MEALS for 90 days Active Lisinopril 10 MG 1 tablet Orally Once a day Unknown Immunizations Vaccine Route Administration Date Status Comme nts Influenza Unknown 12/27/2017 Administered Influenza Unknown 12/19/2019 Administered Problems Problem Type SNOMED Code ICD Code Onset Dates Problem Status W/U Status Risk Notes Problem 156237246 Gastro-esophagea l reflux disease without esophagitis (K21.9) Active confirmed Problem 03951192 Crohns disease of both small and large intestine with other complication (K50.818) Active confirmed Problem Crohn's disease of small AND large intestines (01643594) Crohn''s disease of both small and large intestine without complication (K50.80) Active confirmed Encounters Encounter Location Date Provider Diagnosis [facility] [address] [place] [address] 01/24/2024 Terrence Morgan Jr [facility] [address] [place] [address] 04/12/2024 Terrence Morgan Jr [facility] [address] [place] [address] 05/08/2024 Terrence Mogran Jr [facility] [address] [place] [address] 05/08/2024 Terrence Morgan Jr Plan Of Treatment Future Test Test Name Order Date Colonoscopy with balloon dilation 2011 COLONOSCOPY 02/25/2015 COLONOSCOPY 09/05/2018 Next Appt Details Provider Name:Terrence garcia Jr, 02/03/2025 01:35:00 PM, [address] [facility], [address], [place], [address], Insurance Providers Payer Name Payer Address Payer Phone Subscriber Number Group Number Insured Name Patient Relationship to Insured Coverage Start Date Coverage End Date [facility] [address] [address] [place] [id number] SHARON MILLS Self - patient is the insured Medicare of [place] [employer] [address] [place] [address] [id number] SHARON MILLS Self - patient is the insured Medical (General) History Medical History History ICD Code Crohn's disease small large intestine. Diagnosed 1976, ileocolonic resection in 1996. Current therapy Apriso. Colonoscopy 11/08/19, and no evidence of active Crohn's disease. Colonic stricture IBS Gastroesophageal reflux disease Hypertension Osteoporosis Surgical History Surgery Date(Month/Year) Right hemicolectomy
--- OUTSIDE RECORDS SUMMARY | 2024-12-17 15:45 | XMS_ITS | Clinical Summary ---
Author Organization [facility] Address [address] [address] Phone Care Team Providers Care Construction Site Manager Name Role Phone Adrien Fernández MD Primary Care Provider Allergies No known active allergies Medications alendronate (FOSAMAX) 70 MG tablet TAKE 1 TABLET BY MOUTH ONCE WEEKLY 01/06/2022 Active LIBRAX, WITH CLIDINIUM, 5-2.5 mg per capsule 12/20/2021 Acti ve lisinopril (PRINIVIL,ZESTRIL ) 10 MG tablet 12/09/2021 Acti ve mesalamine (APRISO) 0.375 gram 24 hr capsule 10/28/2021 Active omeprazole (PRILOSEC) 20 MG capsule 10/21/2021 Active simvastatin (ZOCOR) 20 MG tablet 12/28/2021 Active therapeutic multivitamin tablet Take 1 tablet by mouth daily. Active Active Problems No known active problems Social History Tobacco Use Types Packs/Day Years Used Date Smoking Tobacco: Never Assessed Education Answer Date Recorded Are you interested in more education? Not on harman e 07/15/2022 Are you concerned about learning? Not on file 07/15/2022 No 07/15/2022 No 07/15/2022 Digital Access Answer Date Recorded No 08/13/2022 No 08/13/2022 Reliable internet access at home? Not on file 08/13/2022 Device with a working camera? Not on file Comments Unknown Sex and Gender Information Value Date Recorded Sex Assigned at Not on file Legal Sex Female 9:59 PM EDT Gender Identity Not on file Sexual Orientation Not on file Last Filed Vital Signs Vital Sign Reading Time Taken Comments Blood Pressure 132/78 01/17/2022 1:04 PM EDT Pulse 86 01/17/2022 1:04 PM EDT Temperature 36.7 C (98.1 F) 01/17/2022 1:04 PM EDT Respiratory Rate 18 01/17/2022 1:04 PM EDT Oxygen Saturation 97% 01/17/2022 1:04 PM EDT Inhaled Oxygen Concentration - - Weight - - Height - - Body Mass Index - - Plan of Treatment Health Maintenance Due Date Last Done Comments CREATININE LEVEL 1951 LIPID PANEL 1951 POTASSIUM LEVEL 1951 DEPRESSION SCREENING 1963 SMOKING Hx and SMOKELESS TOBACCO SCREENING 11/24/1964 HEPATITIS C SCREENING 11/24/1969 MAMMOGRAM 1991 COLOGUARD 11/24/1996 COLONOSCOPY 11/24/1996 COLORECTAL CANCER SCREENING 11/24/1996 FIT TEST 11/24/1996 FOBT 11/24/1996 SIGMOIDOSCOPY 11/24/1996 VIRTUAL COLONOSCOPY 11/24/1996 ZOSTER VACCINES (2 of 3) 03/03/2016 01/07/2016 OSTEOPOROSIS SCREENING INITIAL (ONE-TIME) 11/24/2016 PNEUMOCOCCAL VACCINES (50+ years) (2 of 2 - PCV) 04/17/2020 04/17/2019, 09/22/2016 INFLUENZA VACCINE (#1) 2024 , 12/20/2020, 11/15/2019, Additional history exists COVID-19 VACCINE (2024- season) 2024 01/11/2022, 09/23/2021, 01/25/2021, Additional history exists RSV VACCINE (1 - 1-dose 75+ series) 11/24/2026 Adult Td,Tdap Booster 04/17/2029 04/17/2019 HEPATITIS A VACCINES Aged Out No long er eligible based on patient's age to complete this topic HIB VACCINES Aged Out No longer eligi ble based on patient's age to complete this topic MENINGOCOCCAL VACCINES (ACWY) Aged Out No longer eligible based on patient's age to complete this topic MENINGOCOCCAL VACCINES (B) Aged Out N o longer eligible based on patient's age to complete this topic Medical Devices Not on file Insurance [facility] MEDICARE REPLACEMENT [facility] MEDICARE [facility] MED[facility]IC[facility]ICARE REPLACEMENT [facility] MEDICARE REPLACEMENT [facility] MEDICARE REPLACEMENT Care Teams Construction Site Manager Relationship Specialty Start Date End Date Adrien Fernández MD [address] [place] [address] PCP - General Family Medicine 01/17/22 Additional Source Comments The information contained in this document represents components of the legal health record. It is not the complete legal health record.[facility]
== END 2024-12-17 14:24 | disposition home or self-care (01) ==
LOC: HO.MAMMO 14:23
PROVIDERS: PCP Family Medicine; Visit Provider Family Medicine
DX: Z12.31 Encounter for screening mammogram for malignant neoplasm of breast (principal); M81.0 Age-related osteoporosis without current pathological fracture
CPT/HCPCS: 77063; 77067; 77080

== ENCOUNTER → 2024-12-17 14:30 | Outpatient (BNV) | payer MEDICARE, SELFPAY | PROVIDERS: PCP Family Medicine; Visit Provider Radiology Diagnostic Radiology | DX: E28.39 Other primary ovarian failure (principal) | CPT/HCPCS: 77080 ==

== ENCOUNTER 2025-01-03 07:41 | Outpatient (REF) | payer MEDICARE, SELFPAY ==
--- OUTSIDE RECORDS SUMMARY | 2023-10-27 03:30 | XMS_ITS ---
Author Organization [facility] Address [address] [address] Care Team Providers Care Steward[employer] Name Role Phone Pradeep Adrien Primary Care Provider Unavailab Terrence Aguilar Jr Unavailable REASON FOR VISIT crohn's Problems Problem Type SNOMED Code ICD Code Onset Dates Problem Status W/U Status Risk Notes Problem Crohn's disease of small AND large intestines (71153020) Crohn''s disease of both small and large intestine without complication (K50.80) Active confirmed Encounters Encounter Location Date Provider Diagnosis [facility] [place] [address] [place] [phone] 10/27/2023 Terrence Morgan Jr Crohn''s disease of both small and large intestine without complication K50.80 Assessments Encounter Date Diagnosis (ICD Code) Assessment Notes Treatment Notes Treatment Clinical Notes Section Notes 10/27/2023 Crohn''s disease of both small and large intestine without complication (ICD-10 - K50.80) Plan Of Treatment Next Appt Details Provider Name:Terrence garcia Jr, 02/03/2025 01:35:00 PM, 10 [facility], [address], [place], [address], Progress Notes * SHARON ANGLIN ADOB: [birth year] (74 yo F)Acc No.[id number]:10/27/2023 COLON WITH MAC Patient: SHARON MAGANA Provider: Sadie Morgan MD :1950 A ge:72 Y S ex:Female Date:10/27/2023 Address:[address] [place] [address] [id number] Pcp:Adrien Fernández Subjective: * Chief Complaints: * [...] 0 10/27/2023 Generated for Tello leon/Jonathon/Gilsonitting on: 1 07:44 AM EDT
--- OUTSIDE RECORDS SUMMARY | 2024-01-25 11:55 | XMS_ITS ---
Author Organization [facility] Address [address] [facility] [address] [place] [phone] Care Team Providers Care Senior Cytogenetics Laboratory Director Name Role Phone Adrien Fernández Primary Care Provider Unavailab Terrence Aguilar Jr REASON FOR VISIT Patient presents today for crohn's, gerd Encounters Encounter Location Date Provider Diagnosis [facility] [address] [place] [phone] 01/25/2024 Terrence Morgan Jr Plan Of Treatment Next Appt Details Provider Name:Terrence garcia Jr, 02/03/2025 01:35:00 PM, [address] [place] [address], [address], [place], [phone], Progress Notes * SHARON ANGLIN ADOB: [birth year] (74 yo F)Acc No.[id number]:01/25/2024 Progress Notes Patient: Alba BRIAN SHARON Espinosa Provider: Sadie Morgan MD :1950 A ge:73 Y S ex:Female Date:01/25/2024 Address:[address] [place] [address] [id number] Pcp:Adrien Fernández Subjective: * Chief Complaints: * [...] Date: 03/26/2023 Generated for Tello leon/Jonathon/Herminia on: 07:44 AM EDT
--- OUTSIDE RECORDS SUMMARY | 2025-01-03 07:45 | XMS_ITS | Patient Health Record ---
Author Organization [facility] Address [address] [place] [address] Care Team Providers Care Automotive Mechanic Name Role Phone Adrien Fernández Primary Care Provider Unavailab Terrence Aguilar Jr Unavailable [phone] Allergies No Known Allergies Reason For Referral No Information Medications Medication SIG (Take, Route, Frequency, Duration) Notes Start Date End Date Status Simvastatin 20 MG 1 tablet in the even ing Orally Once a day Unknown Multi Vitamin/Minerals - as directed Ora lly once a day Unknown Calcium + D 500-1000-40 MG-UNT-MCG 1 tablet Orally once a day Unknown Alendronate Sodium 70 MG Oral; Duration: 84 Unknown Omeprazole 20 mg TAKE 1 CAPSULE NEEDED Active Apriso 0.375 GM 4 capsules in the mo rning Orally Once a day; Duration: 90 days Active chlordiazePOXIDE-Clidinium 5-2.5 mg TAKE 1 CAPSULE TWICE A DAY BEFORE MEALS; Duration: 90 days Active Lisinopril 10 MG 1 tablet Orally Once a day Unknown Immunizations Vaccine Route Administration Date Status Comme nts Influenza Unknown 12/27/2017 Administered Influenza Unknown 12/19/2019 Administered Problems Problem Type SNOMED Code ICD Code Onset Dates Problem Status W/U Status Risk Notes Problem Gastro-esophage al reflux disease without esophagitis (652761764) Gastro-esophagea l reflux disease without esophagitis (K21.9) Active confirmed Problem Crohn's disease of small AND large intestines (47902380) Crohns disease of both small and large intestine with other complication (K50.818) Active confirmed Problem Crohn's disease of small AND large intestines (48345033) Crohn''s disease of both small and large intestine without complication (K50.80) Active confirmed Encounters Encounter Location Date Provider Diagnosis [facility] [address] [place] [address] 01/24/2024 Terrence Morgan Jr [facility] [address] [place] [address] 04/12/2024 Terrence Morgan Jr [facility] [address] [place] [address] 05/08/2024 Terrence Morgan Jr [facility] [address] [place] [address] 05/08/2024 Terrence Morgan Jr Plan Of Treatment Future Test Test Name Order Date Colonoscopy with balloon dilation 2011 COLONOSCOPY 02/25/2015 COLONOSCOPY 09/05/2018 Next Appt Details Provider Name:Terrence garcia Jr, 02/03/2025 01:35:00 PM, [address], [address], [place], [address], Insurance Providers Payer Name Payer Address Payer Phone Subscriber Number Group Number Insured Name Patient Relationship to Insured Coverage Start Date Coverage End Date [facility] [address] [address] [place] [address] [id number] SHARON MILLS Self - patient is the insured Medicare of [place] [employer] [address] [place] [address] [id number] SHARON MILLS Self - patient is the insured Medical (General) History Medical History History ICD Code Crohn's disease small large intestine. Diagnosed 1976, ileocolonic resection in 1996. Current therapy Apriso. Colonoscopy 11/08/19, and no evidence of active Crohn's disease. Colonic stricture IBS Gastroesophageal reflux disease Hypertension Osteoporosis Surgical History Surgery Date(Month/Year) Right hemicolectomy
--- OUTSIDE RECORDS SUMMARY | 2025-01-03 07:45 | XMS_ITS | Clinical Summary ---
Author Organization [facility] Address [address] [address] Phone Care Team Providers Care Program Analyst Name Role Phone Adrien Fernández MD Primary [...] topic Medical Devices Not on file Insurance [facility] MEDICARE REPLACEMENT [facility] MEDIC[facility] REPLACEMENT [facility] MEDIC[facility] REPL[facility]EMENT [facility] MEDICARE REPLACEMENT [facility] MEDICARE REPLACEMENT [facility] MEDICARE REPLACEMENT [facility] MEDICARE REPLACEMENT [facility] MEDICARE REPLACEMENT [facility] MEDICARE REPLACEMENT Care Teams Program Analyst Relationship Specialty Start Date End Date Adrien Fernández MD [address] [place] [address] PCP - General Family Medicine 01/17/22 Additional Source Comments The information contained in this document represents components of the legal health record. It is not the complete legal health record.[facility]
[2025-01-03 13:06] LABS: Alanine Aminotransferase 25 U/L (0-31); Albumin Level 4.4 g/dL (3.5-5.0); Alkaline Phosphatase 43 U/L (39-117); Anion Gap 12 (12-20); Aspartate Amino Transferase 28 U/L (5-31); Blood Urea Nitrogen 20 mg/dL (9-16); Calcium 9.5 mg/dL (8.4-10.2); Carbon Dioxide 28 mmol/L (22-29); Chloride 107 mmol/L (96-108); Estimated Glomerular Filt Rate > 60; Potassium 4.9 mmol/L (3.3-5.1); Sodium 142 mmol/L (135-145); Total Protein 6.8 g/dL (6.5-8.0)
== END 2025-01-03 07:42 | disposition home or self-care (01) ==
LOC: HO.WFDLDS 07:41
PROVIDERS: Visit Provider Family Medicine
DX: Z00.00 Encounter for general adult medical examination without abnormal findings (principal); R73.01 Impaired fasting glucose; E55.9 Vitamin D deficiency, unspecified
CPT/HCPCS: 36415; 80053; 82306; 83036

== ENCOUNTER 2025-01-22 13:54 | Outpatient (AMB) | payer MEDICARE, SELFPAY ==
--- OUTSIDE RECORDS SUMMARY | 2023-10-27 02:30 | XMS_ITS ---
Author Organization [facility] Address [address] [address] Care Team Providers Care Worksite Wellness Practitioner Name Role Phone Pradeep Adrien Primary Care Provider Unavailab Terrence Aguilar Jr Unavailable [phone] REASON FOR VISIT crohn's Problems Problem Type SNOMED Code ICD Code Onset Dates Problem Status W/U Status Risk Notes Problem Crohn's disease of small AND large intestines (20849566) Crohn''s disease of both small and large intestine without complication (K50.80) Active confirmed Encounters Encounter Location Date Provider Diagnosis [facility] Outpatient [address] [place] [id number] 10/27/2023 Terrence Morgan Jr Crohn''s disease of both small and large intestine without complication K50.80 Assessments Encounter Date Diagnosis (ICD Code) Assessment Notes Treatment Notes Treatment Clinical Notes Section Notes 10/27/2023 Crohn''s disease of both small and large intestine without complication (ICD-10 - K50.80) Plan Of Treatment Next Appt Details Provider Name:Terrence garcia Jr, 02/03/2025 01:35:00 PM, 10 [facility], [address], [place], [address], Progress Notes * SHARON ANGLIN ADOB: [birth year] (74 yo F)Acc No.[id number]:10/27/2023 COLON WITH MAC Patient: SHARON MAGANA Provider: Sadie Morgan MD :1950 A ge:72 Y S ex:Female Date:10/27/2023 Address:[address] [place] [address] [id number] Pcp:Adrien Fernández Subjective: * Chief Complaints: * 1 . Crohn's. * Medical History: Objective: * Vitals: Assessment: * Assessment: 1. C rohn''s disease of both small and large intestine without complication - K50.80 (Primary)? Plan: * Treatment: * Procedure Codes: 4 5380 COLONOSCOPY AND BIOPSY * * The named appointment provid er may or may not be the originator of this progress note, and it is not deemed complete until electronically signed by the appointment provider. Sign off status: Pending * Provider: Sadie Morgan MD Date: 0 10/27/2023 Generated for Tello leon/Jonathon/Gilsonitting on: 03/24/2024 05:07 PM EST
--- OUTSIDE RECORDS SUMMARY | 2024-01-25 10:55 | XMS_ITS ---
Author Organization [facility] Address [address] [facility] [address] [place] [phone] Care Team Providers Care Labels Molder Name Role Phone Adrien Fernández Primary Care Provider Unavailab Terrence Aguilar Jr REASON FOR VISIT Patient presents today for crohn's, gerd Encounters Encounter Location Date Provider Diagnosis [facility] [address] [facility] [address] [place] [phone] 01/25/2024 Terrence Morgan Jr Plan Of Treatment Next Appt Details Provider Name:Terrence garcia Jr, 02/03/2025 01:35:00 PM, [address] [place] [address], [address], [place], [phone], Progress Notes * SHARON ANGLIN ADOB: [birth year] (74 yo F)Acc No.[id number]:01/25/2024 Progress Notes Patient: Alba BRIAN SHARON Espinosa Provider: Sadie Morgan MD :1950 A ge:73 Y S ex:Female Date:01/25/2024 Address:[address] [place] [address] [id number] Pcp:Adrien Fernández Subjective: * Chief Complaints: * 1 . Patient presents today for crohn's, gerd. * Medical History: Objective: * Vitals: Assessment: Plan: * Treatment: * * The named appointment provid er may or may not be the originator of this progress note, and it is not deemed complete until electronically signed by the appointment provider. Sign off status: Pending * Provider: Sadie Morgan MD Date: 03/26/2023 Generated for Tello leon/Jonathon/Herminia on: 03/24/2024 05:07 PM EST
--- NOTE | 2025-01-22 13:57 | A.OFFPC_ITS ---
Vital Signs 01/22/25 14:01 Height 5 ft 2.5 in Weight 155 lb BMI 27.9 BP 110/64 Blood Pressure Location Rt brachial Respiration 14 Pulse 93 Pulse Source Pulse Oximeter Temp 97.5 F Temp Source Oral Pulse Oximetry (%) 96 Oxygen Delivery Method Room Air Intake Visit Reasons: f/u diabetes, health maint. Intake Note: Follow up lab results. Mammo and bone density. 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 HPI Details 74 y/o female presents to f/u hypertensi on, diabetes, health maintenance. Last A1c 09/26/24 6.1%. She is on metformin 250mg daily. A1c today 5.9%. Mammogram 12/17/24 was negative. Bone density test 12/17/24 shows osteoporosis. She is on alendronate 75mg. BP today 110/64, 93p. She is on lisinopril 10mg daily. [facility] Medical History IBS (irritable bowel syndrome) GERD (gastroesophageal reflux disease) Osteoporosis Crohn's disease Diabetes HTN (hypertension) History of appendicitis Surgical History H/O colonoscopy History of intestinal surgery Family History Family/Other Diabetes Social History Household Members: Spouse Housing: House Alcohol intake: current Alcohol intake frequency: holidays/special occasions only Alcohol type: beer Patient Tobacco Use Status: Never used Tobacco e-Cigarette/Vaping Use: Never Used Second Hand Smoke Exposure: No service: No Current occupational status: employed 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 glasses) Questionnaire Thrive Questionnaire Date Thrive assessed: 03/22/24 I am a: Patient What is your living situation today?: I have a steady place to live Within the past 12 months, did the food you bought not last and you didn't have the money to get more?: Never true Within the past 12 months, did you worry whether your food would run out before you got money to buy more?: Never true Do you have trouble paying for medicines?: No Do you have trouble getting transportation to medical appointments?: No Do you have trouble paying your heating and electricity bill?: No Do you have trouble taking care of your child, family member or friend?: No Do you have trouble with day-to-day activities such as bathing, preparing meals, shopping, managing finances, etc.?: No Are you currently unemployed and looking for a job?: No Are you interested in more education?: No Please select the resources that you would like help with: None Currently or been in a relationship where the following occur: No concerns reported THRIVE Score: 0 PER-7 AMB Questionnaire PER-7 Date PER - 7 assessed: 03/22/24 Source: Developed by Drs. Anuel Bejarano, Vicky Adame, Arturo Cleaning and colleagues, with an educational dylan from [employer]. Review of Systems Const Denies chills, Denies fatigue, Denies fever(s), Denies headache(s) and Denies weakness ENT Denies dizziness and Denies headache(s) Card Denies dyspnea Resp Denies cough, Denies dyspnea, Denies wheezing and Denies other (shortness of breath) Musc Denies numbness and Denies tingling Neuro Denies dizziness, Denies headache(s), Denies numbness, Denies tingling and Denies weakness Psych Denies anxiety and Denies depression Endo Denies fatigue Aller/Immun Denies wheezing Physical exam (Primary Care) Vital Signs: Last Vital Signs Temp 97.5 F 01/22/25 14:01 Pulse 93 01/22/25 14:01 Resp 14 01/22/25 14:01 BP 110/64 01/22/25 14:01 Pulse Ox 96 01/22/25 14:01 Oxygen Delivery Method Room Air 01/22/25 14:01 BMI result Body Mass Index 27.9 Tobacco/Smoking Status: Tobacco use Status Tobacco use date assessed 03/22/24 01/22/25 13:59 Patient Tobacco Use Status Never used Tobacco 01/22/25 13:59 e-Cigarette/Vaping Use Never Used 01/22/25 13:59 Thrive Assessment: Date of Thrive Assessment Date Thrive assessed 03/22/24 01/22/25 13:59 Currently or been in a relationship where the following occur: No concerns reported Const General: well developed; No acute distress Nutritional Appearance: well nourished Orientation/consciousness: patient oriented x3 HENMT Head: Yes normocephalic and Yes atraumatic Eyes General: appearance normal, both eyes and all related structures Pupils: Equal, round and reactive pupils present EOM: EOMs intact bilaterally Resp Effort & Inspection: normal respiratory effort Neuro General: patient oriented x3 and gait normal Cranial nerves: Yes Equal, round and reactive pupils present Psych Affect: normal affect Coding Level of Care Code Est Pt Level 5 (38460) Diagnoses Essential hypertension I10 Diabetes E11.9 Breast cancer screening by mammogram Z03.19 Osteoporosis M81.0 Immunization counseling Z71.85 Advanced care planning/counseling discussion Z71.89 Assessment & Plan Assessment & Plan (1) Essential hypertension: Code(s): I10 - Essential (primary) hypertension Category: Medical Plan: Blood pressure is well controlled. Goal is less than 140/90 Continue current medication (2) Diabetes: Code(s): E11.9 - Type 2 diabetes mellitus without complications Category: Medical Plan: A1c 5.9% is good control. Goal is less than 7.0% Continue current medication Continue diabetic diet (3) Breast cancer screening by mammogram: Code(s): Z. - Encounter for screening mammogram for malignant neoplasm of breast Category: Medical Plan: Mammogram in November was negative for malignancy Will continue annual screening (4) Osteoporosis: Code(s): M81.0 - Age-related osteoporosis without current pathological fracture Category: Medical Plan: Patient is taking alendronate for osteoporosis. T-score is have improved Continue alendronate Continue good sources of calcium and vitamin-D and continue weight-bearing exercise Will repeat bone density test in 2 years (5) Immunization counseling: Code(s): Z71.85 - Encounter for immunization safety counseling Category: Medical Plan: Patient recently had flu shot RSV and pneumonia shot Recommended COVID shot as well (6) Advanced care planning/counseling discussion: Code(s): Z71.89 - Other specified counseling Category: Medical Plan: MOSLT form discussed, signed and will be scanned to her records
[2025-01-22 14:01] VITALS: BP 110/64; PULSE 93; RESP 14; TEMP 36.4; O2SAT 96; BMI 27.9
--- OUTSIDE RECORDS SUMMARY | 2025-01-22 17:07 | XMS_ITS | Patient Health Record ---
Author Organization [facility] Address [address] [place] [address] Care Team Providers Care Table Runner Name Role Phone Adrien Fernández Primary Care [...] Problem Gastro-esophage al reflux disease without esophagitis (898975977) Gastro-esophagea l reflux disease without esophagitis (K21.9) Active confirmed Problem Crohn's disease of small AND large intestines (87347549) Crohns disease of both small and large intestine with other complication (K50.818) Active confirmed Problem Crohn's disease of small AND large intestines (56943020) Crohn''s disease of both small and large intestine without complication (K50.80) Active confirmed Encounters Encounter Location Date Provider Diagnosis [facility] [address] [place] [address] 01/24/2024 Terrence Morgan Jr [facility] [address] [address] [place] [address] 04/12/2024 Terrence Morgan Jr [facility] [address] [place] [address] 05/08/2024 Terrence Morgan Jr [facility] [address] [place] [address] 05/08/2024 Terrence Morgan Jr Plan Of Treatment Future Test Test Name Order Date Colonoscopy with balloon dilation 2011 COLONOSCOPY 02/25/2015 COLONOSCOPY 09/05/2018 Next Appt Details Provider Name:Terrence garcia Jr, 02/03/2025 01:35:00 PM, [address], [address], [place], [address], Insurance Providers Payer Name Payer Address Payer Phone Subscriber Number Group Number Insured Name Patient Relationship to Insured Coverage Start Date Coverage End Date [facility] [address] [address] [place] [address] [id number] SHARON MILLS Self - patient is the insured Medicare of [place] [employer] [address] [place] [address] [id number] SHARON MILLS Self - patient is the insured Medical (General) History Medical History History ICD Code Crohn's disease small large intestine. Diagnosed 1976, ileocolonic resection in 1996. Current therapy Apriso. Colonoscopy 11/08/19, and no evidence of active Crohn's disease. Colonic stricture IBS Gastroesophageal reflux disease Hypertension Osteoporosis Surgical History Surgery Date(Month/Year) Right hemicolectomy
--- OUTSIDE RECORDS SUMMARY | 2025-01-22 17:07 | XMS_ITS | Clinical Summary ---
Author Organization [facility] Address [address] [address] Phone Care Team Providers Care Process Engineering Intern Name Role Phone Adrien Fernández MD Primary [...] Medical Devices Not on file Insurance [facility] MEDICARE REPLACEMENT [facility]IC[facility]IC[facility]ICARE [facility]EMENT [facility] [address]ICARE [address] [address] [address] [place] [address] [address] MEDICARE REPLACEMENT Care Teams Process Engineering Intern Relationship Specialty Start Date End Date Adrien Fernández MD PCP - General Family Medicine 10/31/22 Additional Source Comments The information contained in this document represents components of the legal health record. It is not the complete legal health record.[facility]
== END 2025-01-22 14:34 | disposition home or self-care (01) ==
LOC: HO.HMCFM 13:55
PROVIDERS: PCP Family Medicine; Visit Provider Family Medicine
DX: I10 Essential (primary) hypertension (principal); E11.9 Type 2 diabetes mellitus without complications; Z12.31 Encounter for screening mammogram for malignant neoplasm of breast; M81.0 Age-related osteoporosis without current pathological fracture; Z71.85 Encounter for immunization safety counseling; Z71.89 Other specified counseling

== ENCOUNTER → 2025-01-22 13:54 | Outpatient (BNVA) | payer MEDICARE, SELFPAY | PROVIDERS: PCP Family Medicine; Visit Provider Family Medicine | DX: I10 Essential (primary) hypertension (principal); E11.9 Type 2 diabetes mellitus without complications; M81.0 Age-related osteoporosis without current pathological fracture | CPT/HCPCS: 99212 ==